=== PATIENT | female | born 1970 | race Caucasian/White ===

== ENCOUNTER 2021-06-26 12:00 | Outpatient (RCR) | payer OTHER, SELFPAY ==
--- NOTE | 2021-05-22 11:08 | HP.PTEVAL_ITS ---
Patient's Visit Information BARBARA WEI is a 51 year old F referred to Physical Therapy by Dr. Magen Storey MD with a diagnosis of R THR s/p 05-07-21. Date of Evaluation: 05/22/21 Physical Therapist: MANI Mckay - Visit Plan Frequency: 3x /Week Duration: 2 Months Plan: 3X/ week for 6-8 weeks for R hip strengthening, AROM, gait training, functional activities, stairs, curb steps, sit to stands with HEP. HEP: standing heel and toe raises at walker, - Subjective Pt had a R THR on 05-07-21. Her incison is on the front of her thigh and had an anterior approach. She is walking with a front wheeled walker with WBAT. She has been dealing with increase swelling from being on her feet too much. said to avoid pulling R LEG back under the chair in sitting due to the way he had to put in the prosthesis due to bone softening. She had a L THR done previous. She has pain in her groin when moving around. She has basement stairs at home with a railing. There are 2 steps to get into the house without a railing with up with the good and down with the bad with the walker able to be on the step. She is not driving. She is not working. 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 She is off work until 07-06-2021. She is having problems with impacted bowls and thinks that is putting pressure on the sciatic nerve. She has had some action with a suppository this morning but not as much as she should be. She is staying her kids currently. HEP: squeeze butt cheeks together, QS, ankle pumps, SLR. She feels that the bruising was extensive. Sit to stand: she uses her arms to push off the chair. She is not sleeping well because her leg twitches and pain at night. She is up and moving a lot during the day due to decreasing her swelling. She had to elevate her leg for 3 days due to the swelling - Pain R hip pain Pain Intensity (Out of 10): 4 Pain Intensity Range: 6 Comment: with walking. - Objective Gait: walks with decreased stance time on the R LE with a front wheeled walker with decreased heel to toe gait pattern and almost a straight leg. Sit to stand: uses B UE to stand up out of the chair. LE MMT: R hip flex 3.3#, R hip abd 3.6#, Knee flex 4-/5 and Knee ext R 4-/5. R hip flex AROM in standing 30 degrees. R hip ext AROM in standing 3 degrees. Pt is able to rise on heels and toes X 10... increase R groin pain after X 10 toe raises. Tug 29.78 seconds - Balance/Special Test Scores Lower Extremity Functional Score: 18 WOMAC Total Score: 57 WOMAC Percentatge: 40.6300 - Goals Goal 1:: I HEP Goal Time Frame: 6-8 Weeks Goal 2:: Increase R hip flex and abd strength by 5# each Goal Time Frame: 6-8 Weeks Goal 3:: be able to walk without an AD and without an antalgic gait Goal Time Frame: 6-8 Weeks Goal 4:: Up and down stair recip with 1 hand rail without any signs of weakness Goal Time Frame: 6-8 Weeks Goal 5:: Be able to get up out of a chair without the use of her arms X 5 Goal Time Frame: 6-8 Weeks - Rehabilitation Potential Rehabilitation Potential: Good - Anticipated Interventions Patient/Client Instruction: Educate patient on: Condition, Plan of Care For the Purpose of:: To decrease pain, To decrease swelling/inflammation, To increase ROM, To improve muscle performance and motor function, To improve ability to perform ADL's, To increase tolerance to activity/condition/position, To improve performance and independence with ADL's, To decrease level of supe rvision to perform tasks, To improve ability of physical actions for home/community/work/leisure, To improve gait and locomotor functions, To improve health of tissue, To decrease soft tissue restriction, To increase flexibility/ROM, To improve balance, To improve safety with gait Therapeutic Exercise to Include: Strength training, Endurance training, Balance training, Body mechanics, Postural training, Flexibilty training, Gait and locomotor training, Neuromotor development, Active ROM, Dynamic Lumbar Stabilization For the Purpose of:: To decrease pain, To increase ROM, To improve nutrient delivery to tissue, To increase oxygenation perfusion, To improve muscle performance and motor function, To improve ability to perform ADL's, To increase tolerance to activity/condition/position, To improve performance and independence with ADL's, To decrease level of supervision to perform tasks, To improve ability of physical actions for home/community/work/leisure, To improve gait and locomotor functions, To improve health of tissue, To decrease soft tissue restriction, To increase flexibility/ROM, To improve endurance, To improve balance, To improve safety with gait Functional Training to Include: Gait training For the Purpose of:: To improve gait and locomotor functions, To improve safety with gait Thank you for the opportunity to evaluate your patient. For Medicare and Medicare HMO plans, please review the plan of care and approve it. It will need to be FAXED BACK to us at [phone] for Medicare purposes. For Medicare only, by signing this I certify the plan of care. Please let me know if there are questions or concerns regarding this plan of car e. Physician Signature: Date:
--- NOTE | 2021-11-06 12:39 | HP.PTDCNRP_ITS ---
BARBARA WEI was seen in my office for initial evaluation on 05/22/21. The following Plan of Care was established for this patient: Initial Frequency: 3x /Week Initial Duration: 2 Months Patient/Client Instruction: Educate patient on: Condition, Plan of Care For the Purpose of:: To decrease pain, To decrease swelling/inflammation, To increase ROM, To improve muscle performance and motor function, To improve ability to perform ADL's, To increase tolerance to activity/condition/position, To improve performance and independence with ADL's, To decrease level of supervision to perform tasks, To improve ability of physical actions for home/community/work/leisure, To improve gait and locomotor functions, To improve health of tissue, To decrease soft tissue restriction, To increase flexibility/ROM, To improve balance, To improve safety with gait Therapeutic Exercise to Include: Strength training, Endurance training, Balance training, Body mechanics, Postural training, Flexibilty training, Gait and locomotor training, Neuromotor development, Active ROM, Dynamic Lumbar Stabilization For the Purpose of:: To decrease pain, To increase ROM, To improve nutrient delivery to tissue, To increase oxygenation perfusion, To improve muscle performance and motor function, To improve ability to perform ADL's, To increase tolerance to activity/condition/position, To improve performance and independence with ADL's, To decrease level of supervision to perform tasks, To improve ability of physical actions for home/community/work/leisure, To improve gait and locomotor functions, To improve health of tissue, To decrease soft tiss ue restriction, To increase flexibility/ROM, To improve endurance, To improve balance, To improve safety with gait Functional Training to Include: Gait training For the Purpose of:: To improve gait and locomotor functions, To improve safety with gait This patient was last seen in our office 06/26/21. Pertinent comments regarding their Physical therapy will appear below: DC PT as pt did not reschedule since May 2021 At this point I will be discontinuing this patient from physical therapy. I would be happy to see this patient again in the future if found appropriate by the physician. Thank you! Debbi Kan, MPT Balance/Gait/Functional tests - Balance/Special Test Scores Lower Extremity Functional Score: 29 WOMAC Total Score: 57 WOMAC Percentage: 40.6300
== END 2021-06-26 19:00 | disposition home or self-care (01) ==
LOC: PT 12:00
PROVIDERS: PCP Family Medicine; Referring Provider Orthopaedic Surgery; Visit Provider Orthopaedic Surgery
DX: M16.11 Unilateral primary osteoarthritis, right hip (principal); M25.551 Pain in right hip
CPT/HCPCS: 97110; 97161

== ENCOUNTER 2022-04-14 04:39 | Emergency (ER) | payer BC, SELFPAY ==
[2022-04-14 04:41] VITALS: BP 144/84; PULSE 73; RESP 18; TEMP 36.3; O2SAT 99; BMI 41.3
--- NOTE | 2022-04-14 04:53 | EX.ED.DYSGE1 ---
HPI History of Present Illness Chief Complaint: Overdose Detail of Chief Complaint: Concern for accidental overdose of iron Informant: patient Onset/Context/Timing Onset: Days Context: Gradual Onset Timing: Intermittent Current Severity: Mild Maximum Severity: Mild Narrative Narrative: 52-year-old female history of prior gastric bypass surgery, Marcela cystectomy and prior hip replacement. States that she craves meat and thinks that secondary to her gastric bypass so for the last 3 weeks she has been taking higher a 65 mg tablet twice a week. She also takes a daily multivitamin. Says she has noticed dark stool and thought she might of overdosed on the iron. She has had some intermittent nausea and constipation. Also states today she had mild dysuria. Denies any fever. Prior similar symptoms: No Recent Illness/Hospitalization: No PFSH PFSH Home Medications cephalexin 500 mg capsule 500 mg PO Q6 7 days #28 caps 04/14/22 [Rx Last Taken Unknown] Allergy/AdvReac Type Severity Reaction Status Date / Time No Known Allergies Allergy Verified 04/14/22 04:46 Social History Smoking Status: Never smoker ROS ROS ED ROS Narrative Dark stool. Nausea. Review of Systems ROS Unobtainable: Denies due to encephalopathy Constitutional Constitutional ED: Denies chills Eyes Eyes: Denies diplopia ENT ENT ED: Denies change in voice Cardiovascular Cardiovascular: Reports abdominal pain Respiratory/Chest Respiratory/Chest: Denies chest congestion Gastrointestinal Gastrointestinal: Reports abdominal pain Genitourinary Genitourinary ED: Denies low back pain Musculoskeletal Musculoskeletal: Denies deformity Integumentary Denies bleeding lesions or jaundice Neurologic Neurologic: Denies abnormal speech or focal weakness Psychiatric Psychiatric: Denies confusion Endocrine Endocrinology: Denies cold intolerance Hematologic/Lymphatic Hematologic/Lymphatic: Denies lymphadenopathy Allergic/Immunologic Allergic/Immunologic ED: Denies lip swelling or mouth swelling EXAM Physical Exam Narrative Exam Narrative: 52-year-old female no acute distress. Vital signs stable afebrile. H EENT exam unremarkable. Moist Riis membranes. Neck nontender no lymphadenopathy. Lungs clear to auscultation bilaterally. Heart regular rhythm rate about 70 no murmur. Abdomen soft, nontender, nondistended. Normal bowel sounds no peritoneal signs. Both right upper and right lower quadrants are unremarkable. Moving all 4 extremities. Nontender no edema. Back nontender. Neurologically she is awake and alert. Const Vital Signs: 04/14/22 04:41 Temperature 97.3 F L Temperature Source Oral Pulse Rate 73 Respiratory Rate 18 Blood Pressure 144/84 H Blood Pressure Mean 104 Pulse Ox 99 Oxygen Delivery Method Room Air Positive well nourished, well developed, obese, alert, oriented x3, no apparent distress, average body habitus, no limitations and healthy appearing; Negative for cachectic, contractures or unkempt General Appearance ED: active, cooperative, comfortable, well kempt and well developed; Negative for unkempt, cachectic, contractures, crying, cyanotic, disheveled, frail, fussy, ill appearing or irritable Orientation / Consciousness: awake, oriented to person, oriented to place and oriented to time; Negative for comatose, confused, disoriented or obtunded Exam Limitations: no limitations; Negative for altered mental status Nutritional Appearance: overweight and obese; Negative for cachectic HEENT Reports normocephalic and head/scalp atraumatic normocephalic, normal to inspection and atraumatic; Negative for trauma Face and Sinus: normal facial exam General Ear: No hearing grossly impaired External Ear: external ears normal Mouth ED: Yes oral and palatal mucosa normal Mouth: oral and palatal mucosa normal Teeth and Gingiva: Negative for abnormal tooth and associated gingiva Throat: posterior oropharynx normal Eyes PERRL, EOMs intact bilaterally, conjunctivae normal and no scleral icterus General Eye ED: Yes normal appearance of both eyes; Negative for scleral icterus Eyelid: eyelids normal Conjunctiva: conjunctiva normal Sclera: sclera normal Pupil: PERRL EOM: EOM abnormal Neck full ROM, No nuchal rigidity, no lymphadenopathy, supple, no meningeal signs and no JVD General: normal visual inspection Lymph Lymphatic: no lymphadenopathy noted and no lymphedema noted; Negative for lymphedema or lymphadenopathy Chest Wall inspection of chest normal and palpation of chest normal Resp normal respiratory effort, normal air movement, no retractions, no use of accessory muscles and clear to auscultation bilaterally Auscultation: clear to auscultation bilaterally Cardio regular rate, regular rhythm, S1 normal heart sound, S2 normal heart sound, no murmurs, no rub, no gallops, no clicks and no JVD; Negative for diaphoretic Rate: regular rate; Negative for bradycardia or tachycardic Rhythm: regular rhythm Heart Sounds: S1 normal and S2 normal; Negative for click, gallop, murmur or rub GI normal to inspection, nondistended, normoactive bowel sounds, soft to palpation, non-tender, non-distended, no masses and no bruits Auscultation: normoactive bowel sounds Palpation: soft; Negative for tender, guarding or rigid no CVA tenderness Back/Spine no CVA tenderness, normal ROM and normal to inspection General Back: Negative for CVA tenderness Extremity normal to inspection, full ROM, no joint enlargement, no clubbing, cyanosis or edema, no calf tenderness and no pedal edema Neuro oriented x3, CN's II-XII intact bilaterally, moves all extremities and no focal motor deficits Sensorium / Orientation: awake, alert, oriented to person, oriented to place and oriented to time; Negative for orientation impaired, confused or lethargic Psych mental status grossly normal, thought process normal, cooperative, affect normal, speech normal and activity/motor behavior normal Appearance: grossly normal, appropriate and well kempt; Negative for unkempt Attitude: calm, engaged, No paranoid, No withdrawn, No bizarre, No uncooperative and No evasive Activity / Motor Behavior: appropriate eye contact Speech: normal speech Mood & Affect: euthymic mood; Negative for irritable Thought Process: normal thought process Memory / Cognition: memory grossly intact Insight: insight good Skin no rashes or lesions noted, no wounds, no jaundice, no petechiae and no mottling General Skin Exam: no breakdown Lesions: no lesions Rashes: no rashes Trauma: no lacerations or abrasions MDM MDM MDM Narrative Medical decision making narrative: Healthy-appearing 52-year-old female complaining of possible unintentional iron overdose. Exam benign. Screening labs being obtained. Repeat exam unchanged. Urine culture will be sent. Patient was started on antibiotics, keflex, for urinary tract infection and outpatient follow-up. Lab Data Attestation: I reviewed the patient's lab results. Lab results narrative: CBC normal white count of 7.2. H&H 13.8 and 41. Electrolytes normal gap 6 normal BUN and creatinine. Normal liver enzymes. Urinalysis are positive for nitrates, 50 daughter white cells and 3+ bacteria consistent with a urinary tract infection a urine culture will be sent. Labs: Laboratory Results - last 24 hr 04/14/22 04/14/22 04/14/22 04:45 04:45 05:00 WBC 7.2 RBC 4.38 Hgb 13.6 Hct 41.4 MCV 94.5 MCH 31.1 MCHC 32.9 RDW Std Deviation 42.8 RDW Coeff of [place] 12.3 Plt Count 248 MPV 10.6 Immature Gran % (Auto) 0.300 Neut % (Auto) 47.7 Lymph % (Auto) 41.3 H [place] % (Auto) 6.7 Eos % (Auto) 3.2 Baso % (Auto) 0.8 Absolute Neuts (auto) 3.4 Absolute Lymphs (auto) 2.96 Nucleated RBC % 0 Sodium 142 Potassium 3.6 Chloride 110 H Carbon Dioxide 26.0 Anion Gap 6 BUN 13 Creatinine 0.70 Estim Creat Clear Calc 93.76 Est GFR (MDRD) Af Amer 112 Est GFR (MDRD) Non-Af 92 BUN/Creatinine Ratio 18.4 Glucose 88 Calcium 8.9 Total Bilirubin 0.40 AST 19 ALT 34 Alkaline Phosphatase 100 Total Protein 7.1 Albumin 3.5 Globulin 3.6 Albumin/Globulin Ratio 1.0 Urine Color Yellow Urine Clarity Sl. Cloudy Urine pH 6.0 Ur Specific [place] 1.020 Urine Protein 30 H Urine Glucose (UA) Normal Urine Ketones Negative Urine Occult Blood 10 H Urine Nitrite Positive H Urine Bilirubin Negative Urine Urobilinogen Normal Ur Leukocyte Esterase 500 H Urine RBC 0-5 SEEN Urine WBC 50-100 SEEN Ur Squamous Epith Cells 0-5 SEEN Urine Bacteria 3+ Urine Mucus 0 SEEN Discharge Plan Triage Chief Complaint: Overdose ED Provider: Guilherme Heard Dx/Rx/DC Orders Clinical Impression: UTI (urinary tract infection), History of gastric bypass Instructions: ED Cystitis Female Adult Prescriptions: New cephalexin 500 mg capsule 500 mg PO Q6 7 Days Qty: 28 0RF Primary Care Provider: David Naranjo Referrals: David Naranjo MD [Primary Care Provider] - 1 Week if not improving Activity Restrictions/Additional Instructions: Plenty of cranberry juice and water to help with your urinary tract infection. A urine culture was sent. The antibiotic Keflex 1 pill 4 times a day for 7 days. Your prescription was sent to [facility] [place]. Disposition Disposition: Home, Self Care
[2022-04-14 05:00] LABS: Absolute Lymphocyte Count 2.96 X10^3/uL (0.83-4.51); Absolute Neutrophil Count 3.4 X10^3/uL (2.0-7.7); Basophil# 0.06 X10^3/uL; Basophil% 0.8 % (0-1); Eosinophil# 0.23 X10^3/uL; Eosinophils% 3.2 % (0-5); Hematocrit 41.4 % (37-47); Hemoglobin 13.6 g/dL (12.0-15.0); Lymphocyte # 2.96 X10^3/ul (0.83-4.51); Lymphocyte % 41.3 % (19-41); Mean Corp Hgb Conc 32.9 g/dL (32-36); Mean Corpuscular Hgb 31.1 pg (27.0-32.0); Mean Corpuscular Volume 94.5 fL (81-99); Mean Platelet Vol. 10.6 fl (6.2-12.0); Monocyte# 0.48 X10^3/uL; Monocyte% 6.7 % (0-10); NRBC Flagged by Analyzer 0 % (0-5); Neutrophil # 3.41 X10^3/uL (2.7-7.7); Neutrophil % 47.7 % (47-70); Platelet Count 248 K/mm3 (150-450); RBC Distribution Width CV 12.3 % (11.6-14.6); RBC Distribution Width SD 42.8 fl (35.1-43.9); Red Blood Count 4.38 M/mm3 (4.2-5.4); White Blood Count 7.2 K/mm3 (4.4-11.0)
[2022-04-14 05:05] LABS: Color, Urine Yellow (Yellow); Glucose, Dipstick Normal (Normal); Ketone-Dipstick Negative (Negative); Leukocyte Esterase-Dipstick 500 /ul (Negative); Mucous, Urine 0 SEEN /hpf (<or=2+); Nitrite-Dipstick Positive (Negative); Occult Blood-Urine 10 /ul (Negative); Protein-Dipstick 30 mg/dl (Negative); Urine Bilirubin Dipstick Negative (Negative); Urine Clarity Sl. Cloudy (Clear); Urine Urobilinogen Normal (Normal)
[2022-04-14 05:12] LABS: Bacteria 3+ /hpf (None Seen); Red Blood Cells-Urine 0-5 SEEN /hpf (0-5); Squamous Epithelial Cells - UA 0-5 SEEN /hpf (5-10); White Blood Cells 50-100 SEEN /hpf (0-5)
[2022-04-14 05:20] LABS: AST(SGOT) 19 U/L (15-37); Alanine Aminotransfer ALT/SGPT 34 U/L (13-56); Albumin, Serum 3.5 g/dL (3.2-5.0); Alkaline Phosphatase 100 U/L (45-117); Anion Gap 6 (5-15); BUN 13 mg/dL (7-18); BUN/Creat Ratio 18.4 RATIO (10-20); Calcium,Total 8.9 mg/dL (8.5-10.1); Chloride 110 mmol/L (98-107); EST Glomerular Filtration Rate 92 mL/min (>60); Est Glom Filt Rate - Afr Amer 112 mL/min (>60); Estimated Creatinine Clearance 93.76 ml/min; Globulin 3.6 g/dL (2.2-4.2); Glucose 88 mg/dL (74-106); Potassium 3.6 mmol/L (3.5-5.1); Protein, Total 7.1 g/dL (6.4-8.2); Sodium Level 142 mmol/L (136-145)
[2022-04-14] MEDS: Cephalexin 250 MG Capsule 500 MG PO (05:32)
[2022-04-14 05:33] VITALS: BP 132/81; PULSE 62; RESP 16; O2SAT 98
== END 2022-04-14 05:37 | disposition home or self-care (01) ==
PROVIDERS: Emergency Provider Emergency Medicine; PCP Family Medicine; Visit Provider Emergency Medicine
DX: N39.0 Urinary tract infection, site not specified (principal); Z68.41 Body mass index [BMI] 40.0-44.9, adult; Z98.84 Bariatric surgery status; E66.9 Obesity, unspecified
CPT/HCPCS: 80053; 81001; 85025; 87086; 87088; 87186; 99284; A4216

== ENCOUNTER → 2022-06-07 | Outpatient (CLI) | payer BC, SELFPAY ==
--- NOTE | 2022-06-07 09:43 | NM_ITS ---
CLINICAL: 52-year-old female with history of painful right hip arthroplasty operated most recently in 2020. WHOLE BODY 99m Tc MDP RADIONUCLIDE BONE SCINTIGRAPHY COMPARISON: None available FINDINGS: Following the intravenous administration of 21.2 mCi of 99m Tc MDP, whole body bone images reveal: 1. Increased tracer tracer is identified in the acetabular and intertrochanteric aspect of the painful right hip arthroplasty. 2. Facilitated uptake is noted in the acromioclavicular compartments of both shoulders, the knee articulations bilaterally. 3. The remaining skeletal structures are scintigraphically unremarkable with normal-appearing renal images and urinary bladder activity identified. An increase in uptake is noted in the femoral component of the presumed asymptomatic left hip prosthesis most consistent with normal postsurgical change. Enhanced radiopharmaceutical is noted in the left superior orbit most consistent with a normal variant involving the frontal zygomatic suture consistent with a normal variant. (Vasyl et al, World Journal of Nuclear Medicine 10: 139, 2011). NM/Bone Scan Whole Body IMPRESSION: 1. The increase in radiotracer concentration identified in the acetabular component of the painful right hip arthroplasty may represent loosening. The specificity of this finding is decreased in the setting of operative intervention < 2 years prior to the current presentation. If infection is a diagnostic consideration, correlation with labeled leukocyte imaging is recommended. 2. 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 Electronically Signed: Vahe Gill, at 10:00 EST ,
== END | disposition home or self-care (01) ==
LOC: NM 09:41
PROVIDERS: PCP Family Medicine; Referring Provider Orthopaedic Surgery; Visit Provider Orthopaedic Surgery
DX: M19.011 Primary osteoarthritis, right shoulder (principal); Z96.641 Presence of right artificial hip joint; M19.012 Primary osteoarthritis, left shoulder; M25.551 Pain in right hip
CPT/HCPCS: 78306; A9503

== ENCOUNTER 2022-12-03 14:26 | Observation (INO) | payer BC, SELFPAY ==
[2022-12-03] VITALS (8 sets, daily range): BP systolic 107–151; BP diastolic 63–87; PULSE 74–95; RESP 16–18; TEMP 36.5–37.9; O2SAT 92–100; BMI 40.6; BMI 41.1
--- NOTE | 2022-12-03 14:49 | CT_ITS ---
STUDY: CT ABDOMEN AND PELVIS WITH CONTRAST REASON FOR EXAM: Female, 52 years old. rlq abdominal pain RADIATION DOSAGE (If Supplied By Facility): CTDIvol = ( 15.38 ) mGy, DLP = ( 1364.46 ) mGycm TECHNIQUE: Transaxial images were obtained from the dome of the diaphragm to the symphysis pubis without oral contrast. IV 100mL Isovue-300 was administered. Sagittal and coronal images were reconstructed. Individualized dose optimization techniques were used for this CT. COMPARISON: None. FINDINGS: The visualized lung bases are unremarkable. The visualized portions of the heart are within normal limits. Probable 5 mm cyst in the liver. Status post cholecystectomy. Mild dilatation of the biliary system. Normal spleen. Normal pancreas. Normal bilateral adrenal glands. Normal right kidney. Normal left kidney. Prior surgery of the stomach. Normal small intestine. Normal colon. The appendix is borderline in size. Mild adjacent mesenteric stranding. Appendicitis cannot be excluded. Normal abdominal aorta. Normal inferior vena cava. Normal retroperitoneum. Normal urinary bladder. Normal abdominal wall. Hip prosthesis bilaterally causing artifact limiting the lower pelvic images. CT/Abdomen/Pelvis W IV Cont ONLY IMPRESSION: The appendix is borderline in size. Mild adjacent mesenteric stranding. Appendicitis cannot be excluded. Small hepatic cyst. Electronically Signed: Fermin Ellis DO at 16:25 EDT Reading Location ID and State: [facility] / [place] Tel [phone], Service support ,
--- NOTE | 2022-12-03 14:50 | ED.VIS.GI ---
HPI HPI - GI History of Present Illness Chief Complaint: Abd Pain Narrative Narrative: 52-year-old female presenting with right lower quadrant abdominal pain. She states that on Friday she started having diarrhea. He then developed nausea and vomiting. Yesterday she continued to have some nausea and vomiting, and today she has developed right lower quadrant abdominal pain. She is not checked her temperature. Patient has significant surgical history of Dale-en-Y, cholecystectomy which was done in [place]. She had an upper and endoscopy performed a couple of years ago but that was also in [place]. She is not established with here. Denies black or bloody stools or emesis. [facility] Medical History (Updated 12/03/22 @ 14:35 by Dao Kumar) Osteoarthritis Home Medications atorvastatin 10 mg tablet 10 mg PO DAILY 12/03/22 [History Last Taken Unknown] duloxetine 30 mg capsule,delayed release 30 mg PO QHS 12/03/22 [History Last Taken Unknown] Allergy/AdvReac Type Severity Reaction Status Date / Time No Known Allergies Allergy Verified 12/03/22 14:28 Surgical History (Updated 12/03/22 @ 14:35 by Dao Kumar) History of back surgery Hx of bilateral hip replacements Hx of cholecystectomy Hx of gastric bypass Social History Smoking Status: Never smoker ROS ROS ED Constitutional Constitutional ED: Denies chills, fever(s) or sweats Eyes Eyes: Denies blurry vision or change in vision ENT ENT ED: Denies ear pain or sore throat Cardiovascular Cardiovascular: Denies chest pain, palpitations or racing heartbeat Respiratory/Chest Respiratory/Chest: Denies cough, dyspnea or sputum Gastrointestinal Gastrointestinal: Reports abdominal pain, diarrhea, nausea and vomiting; Denies constipation Genitourinary Genitourinary ED: Denies dysuria, hematuria or urinary frequency Musculoskeletal Musculoskeletal: Denies arthralgias, myalgias or neck pain Integumentary Denies abscess, Abrasions or rash Neurologic Neurologic: Denies headache(s), paresthesias or weakness Psychiatric Psychiatric: Denies anxiety, depression, suicidal ideation or suicidal thoughts Endocrine Endocrinology: Denies polydipsia or polyuria EXAM Physical Exam Const Vital Signs: 12/03/22 14:27 12/03/22 16:59 12/03/22 17:23 Temperature 97.9 F 97.7 F L Temperature Source Temporal Temporal Pulse Rate 91 84 81 Respiratory Rate 18 18 18 Blood Pressure 147/87 H 151/73 H 151/73 H Blood Pressure Mean 107 99 99 Pulse Ox 98 100 97 Oxygen Delivery Method Room Air Room Air Room Air Positive well nourished General Appearance ED: NAD; Negative for pallor HEENT Reports moist mucous membranes normocephalic and atraumatic Eyes PERRL and EOMs intact bilaterally Resp normal respiratory effort Cardio regular rate and regular rhythm GI Palpation: tender RLQ Psych mental status grossly normal Skin no wounds General Skin Exam: Negative for jaundice or pallor MDM MDM MDM Narrative Medical decision making narrative: Patient presenting with right lower quadrant pain as well as nausea, vomiting, diarrhea. Differential includes colitis, diverticulitis, appendicitis, viral syndrome. Patient medicated with morphine 4 mg and Zofran 4 mg IV. She is given a liter normal saline. Patient's pain was well controlled. CBC shows no leukocytosis. Hemoglobin hematocrit are stable. Platelets are normal. Renal function electrolytes within normal limits. Liver function normal. Urinalysis negative for infection. CT of the abdomen pelvis with IV contrast was obtained and shows concern for acute appendicitis. I reviewed the CT with Dr. Jessica and she is going to take the patient to the OR for appendectomy. Patient was given a dose of Zosyn IV here in the ED. She is transported in stable condition. Impression: 1. Nausea/vomiting 2. Diarrhea 3. Acute appendicitis Lab Data Labs: Laboratory Results - last 24 hr 12/03/22 12/03/22 12/03/22 14:40 14:40 15:48 WBC 7.2 RBC 4.87 Hgb 15.0 Hct 46.1 MCV 94.7 MCH 30.8 MCHC 32.5 RDW Std Deviation 43.3 RDW Coeff of Salas 12.4 Plt Count 224 MPV 10.4 Immature Gran % (Auto) 0.400 Neut % (Auto) 84.2 H Lymph % (Auto) 8.9 L [place] % (Auto) 5.7 Eos % (Auto) 0.7 Baso % (Auto) 0.1 Absolute Neuts (auto) 6.1 Absolute Lymphs (auto) 0.64 L Nucleated RBC % 0 Sodium 140 Potassium 4.0 Chloride 106 Carbon Dioxide 27.0 Anion Gap 7 BUN 20 H Creatinine 0.78 Estim Creat Clear Calc 84.14 Est GFR (MDRD) Af Amer 99 Est GFR (MDRD) Non-Af 82 BUN/Creatinine Ratio 25.6 H Glucose 89 Calcium 9.2 Total Bilirubin 0.60 AST 25 ALT 31 Alkaline Phosphatase 96 Total Protein 7.4 Albumin 3.7 Globulin 3.7 Albumin/Globulin Ratio 1.0 Lipase 30 Urine Color Yellow Urine Clarity Clear Urine pH 8.0 Ur Specific [place] 1.010 Urine Protein Negative Urine Glucose (UA) Normal Urine Ketones 15 H Urine Occult Blood Negative Urine Nitrite Negative Urine Bilirubin Negative Urine Urobilinogen 1 H Ur Leukocyte Esterase Negative Urine RBC 0 SEEN Urine WBC 0 SEEN Ur Squamous Epith Cells 0 SEEN Urine Bacteria 0 SEEN Urine Mucus 0 SEEN Radiography Diagnostic Testing: Clinical Impression(s) from Imaging Studies Abdomen/Pelvis CT 12/03/22 14:49 IMPRESSION: The appendix is borderline in size. Mild adjacent mesenteric stranding. Appendicitis cannot be excluded. Small hepatic cyst. Electronically Signed: Fermin Ellis DO at 16:25 EDT Reading Location ID and State: [facility] / [place] Tel [phone], Service support , Discharge Plan Disposition Disposition: Acute Care Hospital [facility] Discharge Date/Time: 12/03/22 17:24
[2022-12-03] MEDS: 0.9% Normal Saline 1,000 ML 1000 ML IV (14:59)
[2022-12-03] MEDS: Morphine 4 MG/ML Syringe IV (14:59)
[2022-12-03] MEDS: Ondansetron 4 MG/2 ML Vial IV ×2 (14:59→20:39)
[2022-12-03 15:01] LABS: Absolute Lymphocyte Count 0.64 X10^3/uL (0.83-4.51); Absolute Neutrophil Count 6.1 X10^3/uL (2.0-7.7); Basophil# 0.01 X10^3/uL; Basophil% 0.1 % (0-1); Eosinophil# 0.05 X10^3/uL; Eosinophils% 0.7 % (0-5); Hematocrit 46.1 % (37-47); Lymphocyte # 0.64 X10^3/ul (0.83-4.51); Lymphocyte % 8.9 % (19-41); Mean Corp Hgb Conc 32.5 g/dL (32-36); Mean Corpuscular Hgb 30.8 pg (27.0-32.0); Mean Corpuscular Volume 94.7 fL (81-99); Mean Platelet Vol. 10.4 fl (6.2-12.0); Monocyte# 0.41 X10^3/uL; Monocyte% 5.7 % (0-10); NRBC Flagged by Analyzer 0 % (0-5); Neutrophil # 6.06 X10^3/uL (2.7-7.7); Neutrophil % 84.2 % (47-70); Platelet Count 224 K/mm3 (150-450); RBC Distribution Width CV 12.4 % (11.6-14.6); RBC Distribution Width SD 43.3 fl (35.1-43.9); Red Blood Count 4.87 M/mm3 (4.2-5.4); White Blood Count 7.2 K/mm3 (4.4-11.0)
[2022-12-03 15:20] LABS: AST(SGOT) 25 U/L (15-37); Alanine Aminotransfer ALT/SGPT 31 U/L (13-56); Albumin, Serum 3.7 g/dL (3.2-5.0); Alkaline Phosphatase 96 U/L (45-117); Anion Gap 7 (5-15); BUN 20 mg/dL (7-18); BUN/Creat Ratio 25.6 RATIO (10-20); Calcium,Total 9.2 mg/dL (8.5-10.1); Chloride 106 mmol/L (98-107); Creatinine, Serum 0.78 mg/dL (0.55-1.02); EST Glomerular Filtration Rate 82 mL/min (>60); Est Glom Filt Rate - Afr Amer 99 mL/min (>60); Estimated Creatinine Clearance 84.14 ml/min; Globulin 3.7 g/dL (2.2-4.2); Glucose 89 mg/dL (74-106); Lipase 30 U/L (13-75); Protein, Total 7.4 g/dL (6.4-8.2); Sodium Level 140 mmol/L (136-145)
[2022-12-03 15:52] LABS: Bacteria 0 SEEN /hpf (None Seen); Mucous, Urine 0 SEEN /hpf (<or=2+); Red Blood Cells-Urine 0 SEEN /hpf (0-5); Squamous Epithelial Cells - UA 0 SEEN /hpf (5-10); White Blood Cells 0 SEEN /hpf (0-5)
[2022-12-03 16:00] LABS: Color, Urine Yellow (Yellow); Glucose, Dipstick Normal (Normal); Ketone-Dipstick 15 mg/dl (Negative); Leukocyte Esterase-Dipstick Negative /ul (Negative); Nitrite-Dipstick Negative (Negative); Occult Blood-Urine Negative /ul (Negative); Protein-Dipstick Negative (Negative); Urine Bilirubin Dipstick Negative (Negative); Urine Clarity Clear (Clear); Urine Urobilinogen 1 mg/dl (Normal)
--- NOTE | 2022-12-03 17:12 | PCM.HP.STD ---
HPI - General General Date of Admission: 12/03/22 HPI Narrative BARBARA WEI, is a 52 F who presents to the ER due to right lower quadrant pain. Patient states she started having diarrhea on Friday however last night started having periumbilical right-sided abdominal pain which moved to the right lower quadrant. Patient was also having nausea and vomiting starting about [address] abdomen pelvis showed some inflammation near the appendix called borderline appendix and stated that appendicitis should be ruled out. Patient does have a slight left shift but normal white blood cell count. Patient was given Zosyn IV in the ER for acute appendicitis. [facility] Medical History (Updated 12/03/22 @ 17:[address] Lisa Jessica MD) Hyperlipemia Osteoarthritis Home Medications atorvastatin 10 mg tablet 10 mg PO DAILY 12/03/22 [History Last Taken Unknown] duloxetine 30 mg capsule,delayed release 30 mg PO QHS 12/03/22 [History Last Taken Unknown] Allergy/AdvReac Type Severity Reaction Status Date / Time No Known Allergies Allergy Verified 12/03/22 14:28 Surgical History (Updated 12/03/22 @ 17:[address] Lisa Jessica MD) History of back surgery Hx of bilateral hip replacements Hx of cholecystectomy Hx of gastric bypass S/P abdominoplasty Social History Smoking Status: Never smoker Vital Signs Vital Signs Vital Signs: 12/03/22 14:27 12/03/22 16:59 Temperature 97.9 F Temperature Source Temporal Pulse Rate 91 84 Respiratory Rate 18 18 Blood Pressure 147/87 H 151/73 H Blood Pressure Mean 107 99 Pulse Ox 98 100 Oxygen Delivery Method Room Air Room Air Weight Weight: 271 lb 6.224 oz Body Mass Index (BMI) 40.6 Physical Exam Const alert, oriented x3 and no apparent distress HEENT normocephalic and head/scalp atraumatic Resp normal respiratory effort Cardio regular rate GI soft to palpation; Negative for non-distended GI Narrative: Well-healed abdominoplasty incision as well as some various laparoscopic incisions likely due to her gastric bypass Palpation: tender RLQ and Rovsing's sign and guarding other (Right lower quadrant voluntary) Extremity no clubbing, cyanosis or edema Neuro CN's II-XII intact bilaterally Psych mental status grossly normal Results Lab / Micro Data Result Diagrams: 12/03/22 14:40 12/03/22 14:40 Labs: Laboratory Results - last 24 hr 12/03/22 14:40: WBC 7.2, RBC 4.87, Hgb 15.0, Hct 46.1, MCV 94.7, MCH 30.8, MCHC 32.5, RDW Std Deviation 43.3, RDW Coeff of Salas 12.4, Plt Count 224, MPV 10.4, Immature Gran % (Auto) 0.400, Neut % (Auto) 84.2 H, Lymph % (Auto) 8.9 L, Edgar % (Auto) 5.7, Eos % (Auto) 0.7, Baso % (Auto) 0.1, Absolute Neuts (auto) 6.1, Absolute Lymphs (auto) 0.64 L, Nucleated RBC % 0 12/03/22 14:40: Sodium 140, Potassium 4.0, Chloride 106, Carbon Dioxide 27.0, Anion Gap 7, BUN 20 H, Creatinine 0.78, Estim Creat Clear Calc 84.14, Est GFR (MDRD) Af Amer 99, Est GFR (MDRD) Non-Af 82, BUN/Creatinine Ratio 25.6 H, Glucose 89, Calcium 9.2, Total Bilirubin 0.60, AST 25, ALT 31, Alkaline Phosphatase 96, Total Protein 7.4, Albumin 3.7, Globulin 3.7, Albumin/Globulin Ratio 1.0, Lipase 30 12/03/22 15:48: Urine Color Yellow, Urine Clarity Clear, Urine pH 8.0, Ur Specific [place] 1.010, Urine Protein Negative, Urine Glucose (UA) Normal, Urine Ketones 15 H, Urine Occult Blood Negative, Urine Nitrite Negative, Urine Bilirubin Negative, Urine Urobilinogen 1 H, Ur Leukocyte Esterase Negative, Urine RBC 0 SEEN, Urine WBC 0 SEEN, Ur Squamous Epith Cells 0 SEEN, Urine Bacteria 0 SEEN, Urine Mucus 0 SEEN Radiology Impression Abdomen/Pelvis CT 12/03/22 14:49 IMPRESSION: The appendix is borderline in size. Mild adjacent mesenteric stranding. Appendicitis cannot be excluded. Small hepatic cyst. Electronically Signed: Fermin Ellis DO at 16:25 EDT Reading Location ID and State: [facility] / [place] Tel [phone], Service support , Assessment & Plan Assessment/Plan (1) Acute appendicitis: PLAN: Plan 1. Discussed procedure laparoscopic appendectomy, possible open along with the risk but not limited to bleeding, infection/abscess, injury to another organ (small bowel, colon, etc.), adhesion, hernia at incision sites, and anesthesia. Patient no further question this time. Lisa Jessica M.D. Pager: [phone] [facility] [address] [place] [address], [address] [place] [address] Office: [phone]
[2022-12-03] MEDS: Lactated Ringers 1,000 ML 15 ML IV (17:41)
--- NOTE | 2022-12-03 18:05 | APP_PTH ---
PATIENT: BARBARA WEI LOC: MS3 U#:[id number] AGE/SX: 52/F ROOM: VT319 RE12/03/[address]: Dr. Lisa Jessica MD : 1970 BED: 1 DIS: 12/04/2022 SPEC #: [id number] RECD: 12/04/22 11:37 STATUS: MARILYN RETanika #: [id number] MELONIE: 12/03/22 18:[address]: Lisa Jessica DEPT: SURGICAL PATHOLOGY RECD BY: Arielle Duffy ENTERED: 12/04/22 13:06 SP TYPE: APPENDIX OTHR DR: Dr. David Naranjo MD Tissues: Appendix, NOS Procedures: Surgery Specimen Level III HEADER OPERATION: Laparoscopic appendectomy PRE-OP DIAGNOSIS: Acute appendicitis TISSUE SUBMITTED: Appendix MICROSCOPIC DIAGNOSIS Appendix, appendectomy: Fibrofatty obliteration of lumen. No evidence of appendicitis. AM:ruthy 12/05/2022 MICROSCOPIC DESCRIPTION Slides are reviewed. GROSS DESCRIPTION Received in fixative is one container labeled with the patient's name and designated appendix. The specimen consists of an appendix measuring 6.0 cm in length and 0.3 cm in diameter. The attached periappendiceal adipose tissue measures up to 2.5 cm in width. The serosa is congested. No obvious perforation is identified. Sections of the appendix reveal pin-point lumen with a small amount of fecal material in the proximal portion of the appendix. No fecalith is identified. The entire specimen is submitted in two cassettes. / SJ:ruthy 12/04/2022 TC:5 [facility]: [id number]
[2022-12-03] MEDS: Bupivacaine Mpf 0.5% 30 ML VIAL (18:59)
--- NOTE | 2022-12-03 19:25 | PCM.OPRPT ---
Report of Operation Date of Procedure: 12/03/22 Pre-Operative Diagnosis: Acute appendicitis Post-Operative Diagnosis: Right lower quadrant pain, normal-appearing appendix Surgery/Procedure Performed:: Laparoscopic appendectomy Description of Surgical Findings:: Normal-appearing appendix Surgeon: Lisa Jessica Type of Anesthesia: General/Supplemental Anesthesiologist: Maia Díaz Special Medications: Zosyn 3.375 g IV x1 Specimen's removed: Appendix Estimated Blood Loss (mL): < 10 cc Description of Procedure: Indications: 52-year-old female presented to the ER with new right lower quadrant pain last night. On workup she was found to have possible appendicitis with borderline appendix and mild periappendiceal stranding on CT and a leukocytosis of within normal limits with a left shift. Patient was started on antibiotics in the ER for acute appendicitis-Zosyn 3.375 g IV x1 Description of the procedure: The patient was placed on operating table in supine position. General anesthesia was induced. A timeout was completed verifying correct patient, procedure, position and special equipment prior to beginning procedure. Abdomen was prepped and draped in usual sterile fashion. Incision was made in the natural skin line above the umbilicus with a 15 blade scalpel. The fascia was elevated and incised. Entry into the peritoneum was confirmed visually and no bowel was noted in the vicinity of the incision. The Ledesma trocar was placed under direct vision. Abdomen insufflated with a pressure of 12-15 mmHg. Patient tolerated insertion well. The scope was inserted and the abdomen inspected. No injuries from initial trocar placement were noted. Minimal amount of fluid was seen in the right lower quadrant. An direct visualization 2 -5 mm trocars were placed one above the symphysis pubis and below the hairline and one in the left lower quadrant lateral to the rectus muscle. Care is taken to avoid injury to the bladder and inferior epigastric vessels. The table was placed in Trendelenburg position with the right side elevated. The appendix was grasped with atraumatic grasper and elevated. It was noted to be [id number] discuss with patient prior to procedure would plan to remove even it did appear normal. A window was developed in the mesoappendix at the point between the base of the appendix and the cecum. No obvious other source of inflammation was seen laparoscopically. An [place] 45 mm linear cutting stapler blue load was then used to divide and staple the base of the appendix. Enseal was used to divide the mesoappendix. The appendix was withdrawn into the Ledesma trocar after being placed endoscopically retrieval bag. Appendix was sent to pathology. The appendiceal stump was then irrigated and hemostasis was assured. Fluid was suctioned no other pathology was identified. Secondary trochars were removed under direct visualization. No bleeding was noted trocar sites. The laparoscope withdrawn and the umbilical trocar removed. The abdomen was allowed to collapse. Local anesthesia of 18 mL of 0.5% Marcaine was used at the incision sites. The umbilical trocar site was closed with the [id number] 0 Vicryl suture. The skin was closed using sutures of 4-0 Monocryl and Steri-Strips. The patient was extubated. The patient tolerated the procedure well and was taken to the postanesthesia care unit in satisfactory condition. Complications none
[2022-12-03] MEDS: HYDROCODONE/APAP 7.5-325/15ML 15 ML UDC PO (20:39)
[2022-12-03] MEDS: 0.9% Normal Saline 1,000 ML 120 ML IV (20:40)
[2022-12-04 00:09] VITALS: BP 99/48; PULSE 73; RESP 18; TEMP 36.7; O2SAT 93
[2022-12-04] MEDS: HYDROCODONE/APAP 7.5-325/15ML 15 ML UDC PO (02:15)
[2022-12-04 04:40] VITALS: BP 98/51; PULSE 81; RESP 18; TEMP 36.7; O2SAT 94
[2022-12-04] MEDS: 0.9% Normal Saline 1,000 ML 120 ML IV (04:44)
--- NOTE | 2022-12-04 07:49 | PCM.PN.SRG ---
Subjective Subjective Patient still notes some right lower quadrant pain seems to be just the right of her suprapubic incision before surgery is more lateral in the left lower quadrant. Objective Data Objective Data Vital Signs: Vital Signs Temp Pulse Resp BP Pulse Ox O2 Del Method O2 Flow Rate 98.1 F 81 18 98/51 L 94 Room Air 3 12/04/22 04:40 12/04/22 04:40 12/04/22 04:40 12/04/22 04:40 12/04/22 04:40 12/04/22 04:40 12/03/22 20:24 Oxygen Flow Rate (L/min) 3 Oxygen Delivery Method Room Air Weight: 278 lb 14.156 oz Body Mass Index (BMI) 41.1 Intake & Output: Intake and Output for Last 24 Hours 12/02/22 12/03/22 12/04/22 23:59 23:59 23:59 Intake Total 1050 / 1050 1668 / 1668 Output Total 900 / 900 Balance 1050 / 1050 768 / 768 Lab / Micro Data Result Diagrams: 12/03/22 14:40 12/03/22 14:40 Labs: Laboratory Results - last 24 hr 12/03/22 14:40: WBC 7.2, RBC 4.87, Hgb 15.0, Hct 46.1, MCV 94.7, MCH 30.8, MCHC 32.5, RDW Std Deviation 43.3, RDW Coeff of Salas 12.4, Plt Count 224, MPV 10.4, Immature Gran % (Auto) 0.400, Neut % (Auto) 84.2 H, Lymph % (Auto) 8.9 L, [place] % (Auto) 5.7, Eos % (Auto) 0.7, Baso % (Auto) 0.1, Absolute Neuts (auto) 6.1, Absolute Lymphs (auto) 0.64 L, Nucleated RBC % 0 12/03/22 14:40: Sodium 140, Potassium 4.0, Chloride 106, Carbon Dioxide 27.0, Anion Gap 7, BUN 20 H, Creatinine 0.78, Estim Creat Clear Calc 84.14, Est GFR (MDRD) Af Amer 99, Est GFR (MDRD) Non-Af 82, BUN/Creatinine Ratio 25.6 H, Glucose 89, Calcium 9.2, Total Bilirubin 0.60, AST 25, ALT 31, Alkaline Phosphatase 96, Total Protein 7.4, Albumin 3.7, Globulin 3.7, Albumin/Globulin Ratio 1.0, Lipase 30 12/03/22 15:48: Urine Color Yellow, Urine Clarity Clear, Urine pH 8.0, Ur Specific [place] 1.010, Urine Protein Negative, Urine Glucose (UA) Normal, Urine Ketones 15 H, Urine Occult Blood Negative, Urine Nitrite Negative, Urine Bilirubin Negative, Urine Urobilinogen 1 H, Ur Leukocyte Esterase Negative, Urine RBC 0 SEEN, Urine WBC 0 SEEN, Ur Squamous Epith Cells 0 SEEN, Urine Bacteria 0 SEEN, Urine Mucus 0 SEEN Radiography Diagnostic Testing: Radiology Impression Abdomen/Pelvis CT 12/03/22 14:49 IMPRESSION: The appendix is borderline in size. Mild adjacent mesenteric stranding. Appendicitis cannot be excluded. Small hepatic cyst. Electronically Signed: Fermin Ellis DO at 16:25 EDT Reading Location ID and State: [address] [place] [address] Tel [phone], Service support , Physical Exam Const oriented x3 and no apparent distress Resp normal respiratory effort Cardio regular rate GI soft to palpation GI Narrative: Mild tender to palpation just to the right of the suprapubic incision, incisions dressed clean dry and intact. Assessment & Plan Assessment/Plan (1) S/P laparoscopic appendectomy: (2) RLQ abdominal pain: PLAN: Plan Did discuss with the patient that her appendix did appear normal and laparoscopy?however as intact by her prior surgery did remove her appendix. Patient's right lower quadrant pain seems to be closer to the midline now than previous. If patient is able to tolerate diet we will plan to DC home. Lisa Jessica M.D. Pager: [phone] [facility] [address] [place] [address], [facility], [address] [place] [address] Office: [phone]
--- NOTE | 2022-12-04 07:51 | DCINST_ITS ---
Discharge Instructions Diet Discharge Diet: Light diet - advance as tolerated Activity Discharge Activity: May Not Drive (while taking narcotic pain medications.) May shower in (days): 1 Lifting Restrictions: no lifting >20 lbs x 2 wks, no strenuous exercise for 4 wks Dressing / Incision Call your doctor if your incision/area has: Continuous Slow Oozing, Sudden Increased Bleeding, Increased Pain/ Swelling, Increased Redness, Foul Smelling Discharge and Swelling at the incision site Call your doctor if you observe: Fever of 101 or Higher Remove Dressing in: 2 days Cleanse incision/area with: Soap & Water Additional Dressing/Incision Instructions:: Steri-Strips will fall off in 7 to 10 days, if they do not fall off okay to remove after 10 days. Follow Up Care Please Follow Up With: Lisa Jessica MD When: Call the office for a follow-up appointment 2 weeks; after 5 PM and on the weekends call [phone] with any concerns. Test Results: Test results from this visit will be discussed in further detail at your follow- up appointment, if applicable. Discharge Plan Admission Admit Date/Time: 12/03/22 17:56 Attending Provider: Lisa Jessica Primary Care Provider: David Naranjo Discharge Orders/Prescriptions Prescriptions: Continued atorvastatin 10 mg tablet 10 mg PO DAILY duloxetine 30 mg capsule,delayed release(DR/EC) 30 mg PO QHS Referrals / Follow Up: David Naranjo MD [Primary Care Provider] - Disposition Disposition (needs filled in before D/C Order can be placed): Home, Self Care
[2022-12-04 08:49] VITALS: BP 106/55; PULSE 78; RESP 15; TEMP 36.8; O2SAT 98
== END 2022-12-04 09:01 | disposition home or self-care (01) ==
LOC: ED 14:59 → SDC 17:15 → ACINP 17:16 → SDC 20:01 → MS3 20:02
PROVIDERS: Admitting Provider Surgery; Emergency Provider Student in an Organized Health Care Education/Training Program; PCP Family Medicine; Visit Provider Surgery
PROC: 0DTJ4ZZ Resection of Appendix, Percutaneous Endoscopic Approach (ICD-10-PCS; CPT 44970; principal; 2022-12-03 17:45)
DX: K35.80 Unspecified acute appendicitis (principal); E66.01 Morbid (severe) obesity due to excess calories; Z68.41 Body mass index [BMI] 40.0-44.9, adult; E78.5 Hyperlipidemia, unspecified; Z79.899 Other long term (current) drug therapy; M19.90 Unspecified osteoarthritis, unspecified site; Z98.84 Bariatric surgery status
CPT/HCPCS: 44970; 00840; 74177; 80053; 81001; 83690; 85025; 88304; 96361; 96374; 96375; 96376; 99221; 99283; J7030; J7120; Q9967; A4216; C1760; G0378; J2405

== ENCOUNTER → 2023-08-22 | Outpatient (CLI) | payer MEDICAID, SELFPAY ==
--- NOTE | 2023-08-22 12:14 | BI_ITS ---
MAMMOGRAPHY - BILATERAL SCREENING REASON FOR EXAM: Female, 53 years old. Routine annual screening examination. PERTINENT HISTORY: Non-contributory. TECHNIQUE: Digital bilateral breast didier (3D mammographic acquisition) in the CC and MLO projections. 2-D mediolateral oblique (MLO) and craniocaudad (CC) views of both breasts were obtained. CAD: Full Field Digital Mammography with Computer Added Detection was performed. COMPARISON: Comparison is made with prior study dated June 14, 2020. FINDINGS: Breast Composition: The breasts are almost entirely fatty. There are no dominant masses or suspicious calcifications. Stable 5.1 mm well-defined nodule in the upper lateral aspect of the left breast suggestive of a small left intramammary lymph node. Stable small benign-appearing bilateral axillary lymph nodes. No other significant abnormalities are identified. There has been no significant change since the prior study. BI/SCRN MAMM (CAD)W/DIDIER BILAT IMPRESSION: Stable bilateral screening mammogram. Yearly follow-up mammogram recommended. (A) ASSESSMENT CATEGORY: BIRADS Category 2: Benign. A letter regarding these results will be sent to the patient by the facility within 30 days. Approximately 10% of breast cancers are not detected by mammography. A normal mammogram should not delay biopsy of a clinically suspicious abnormality. [id number] Electronically Signed: Thony Beasley MD at 14:01 EST ,
--- OUTSIDE RECORDS SUMMARY | 2023-08-22 12:35 | XMS RPT_ITS | CCD ---
Author Name Unknown Address [address] [facility] [address] [place] [address] Organization [facility] Care Team Providers Care Chief Dispatcher Name Role Phone SHARLENE NARANJO Primary Care Unavailable KIMBERLY MATUTE Admitting Unavailable Sharlene Naranjo MD Primary Care Provider SUDHAKAR CLEMENS Unavailable JIGAR LUCAS Primary Care Unavailable STERLING GARCIA Attending Unavailable STERLING GARCIA Admitting Unavailable GLO CHENG Referring Unavailable JIGAR LUCAS Primary Care Unavailable JESSICA OKEEFE Attending Unavailable GLO CHENG Attending Unavailable JIGAR LUCAS Primary Care Unavailable SHARLENE NARANJO Primary Care Unavailable Allergies Allergy Classification Reported Allergen(s) Allergy Type Date of Onset Reaction(s) Facility (1 source) Grass pollen; Translations: [GRASS POLLEN] Propensity to adverse reactions to drug (disorder) 0 [facility] Repository Problems Problem Classification Problem Date Documented Date Episodic/Chronic Abdominal pain (1 source) Right lower quadrant pain; Translations: [Right lower quadrant pain] Episodic Conditions associated with dizziness or vertigo (1 source) Dizziness and giddiness; Translations: [Dizziness] Onset: 08-13-2023 Episodic Delirium, dementia, and amnestic and other cognitive disorders (1 source) Unspecified mental disorder due to known physiological condition; Translations: [Cognitive dysfunction] Onset: 08-20-2023 Chronic Essential hypertension (1 source) Essential (primary) hypertension; Translations: [Hypertension, unspecified type] Onset: 08-11-2023 Chronic Malaise and fatigue (1 source) Other fatigue; Translations: [Fatigue, unspecified type] Onset: 08-20-2023 Episodic Miscellaneous mental health disorders (1 source) Psychophysiologic insomnia; Translations: [Psychophysiologic insomnia] Onset: 08-20-2023 Chronic Other ear and sense organ disorders (1 source) Unspecified hearing loss, unspecified ear; Translations: [Hearing loss, unspecified hearing loss type, unspecified laterality] Onset: 08-20-2023 Chronic Other lower respiratory disease (1 source) Snoring; Translations: [Snoring] Onset: 08-20-2023 Episodic Other nervous system disorders (1 source) Other chronic pain; Translations: [Other chronic pain] Onset: 08-20-2023 Chronic Other nervous system disorders (1 source) Ataxia, unspecified; Translations: [Ataxia] Onset: 08-11-2023 Episodic Results Test Name Value Interpretation Reference Range Facil ity Encounters Encounter Date Encounter Type Care Provider Facility Start: 08-20-2023 End: 08-20-2023 ambulatory [facility] Facility:[facility] Start: 08-15-2023 End: 08-15-2023 ambulatory GLO [facility] Facility:[facility] Start: 08-11-2023 End: 08-13-2023 ambulatory SUDHAKAR CLEMENS Facility:[facility] Start: 12-03-2022 End: 12-03-2022 ambulatory SHARLENE Almaraz DELANO Facility:[facility] Start: 12-03-2022 End: 12-03-2022 Patient encounter procedure Portillo Dorman APRN.ONCOLOGY PHYSICIAN Work Phone: [facility] Procedures Date Procedure Procedure Detail Performing Clinician Start: 05-07-2021 Antibody screen Plan of Treatment Date Care Activity Detail Author Start: 05-08-2024 DIABETES SCREEN DIABETES SCREEN [facility] Start: 07-28-2022 DEPRESSION ASSESSMENT DEPRESSION ASS ESSMENT [facility] Start: 09-12-2021 COVID-19 VACCINE (4 - Booster for Moderna series) COVID-19 VACCINE (4 - Booster for Moderna series) [facility] Start: 2019 SHINGRIX VACCINE (1 of 2) SHINGRIX V ACCINE (1 of 2) [facility] Start: 2014 COLOGUARD (FIT-DNA) COLOGUARD (FIT-D NA) [facility] Start: 2014 Colonoscopy COLONOSCOPY [facility] Start: 2014 COLORECTAL CANCER SCREENING COLORECTAL CANCER SCREENING [facility] Start: [address] [facility] Start: 2014 FECAL OCCULT BLOOD FECAL OCCULT BLOO D [facility] Start: 2014 LIPID SCREEN LIPID SCREEN [facility] Start: 2014 SIGMOIDOSCOPY SIGMOIDOSCOPY [facility] Start: 2009 Mammography MAMMOGRAM [facility] Start: 1999 HPV TESTING HPV TESTING [facility] Start: 1990 PAP TESTING PAP TESTING [facility] Start: 02-21-1988 Urine microalbumin profile DTAP,TDAP ,TD (1 - Tdap) [facility] Start: 1987 HEPATITIS C SCREENING HEPATITIS C SC REENING [facility] Start: 1987 HIV SCREENING HIV SCREENING [facility] Start: 1970 HEPATITIS B (1 of 3 - 3-dose series) HEPATITIS B (1 of 3 - 3-dose series) [facility] Payers Date Payer Category Payer Unknown [id number] 2022 Unknown ZARA MONTALVO SS PPO [id number] 2022-Present [phone] [facility] [id number] [place] [address] PPO [id number] 2022 Unknown [id number] 1970 Unknown [id number] Unknown [id number] Social History Date Type Detail Facility [facility] consumption unknown [facility] Start: 1970 Sex Assigned At Not on file C [facility] Clinical Notes 05-07-2021 to 08-20-2023 Portillo Dorman APRN.ONCOLOGY PHYSICIAN - 12/03/2022 2:21 PM EDT Note Date & Type Note Facility 08-20-2023 Note HNO ID: [id number] Author: JESSICA OKEEFE AUD Service: ? Author Type: Oxygen Therapist Type: Progress Notes Filed: 08/20/2023 14:14 Note Text: [facility] [place] AUDIOLOGIC EVALUATION REPORT Name: Debi Wei F#: [id number] Date of Service: 08/20/2023 Date of : 1970 Age: [age] year old Referred by: Glo Cheng [address] [facility] [address] Referred for: Evaluation of suspected change in hearing, tinnitus, or balance. Referral documented: In an order in [facility] Patient's major complaints: Reduced hearing in the right ear, Tinnitus in the right ear, Dizziness/vertigo/imbalance Debi Wei was seen for an initial audiologic evaluation. See SmartForm Audiogram for additional reported history and symptoms. IMPRESSIONS RIGHT EAR: Sensorineural hearing loss LEFT EAR: Sensorineural hearing loss Comparison of today's results with previous test results: No previous results available AUDIOLOGIC EVALUATION Following is a brief interpretation of the obtained findings from the audiologic evaluation. Refer to the Auditory Test Record for complete audiometric results. The patient was counseled about the test findings and appropriate audiologic recommendations were made. SUMMARY: Audiogram can be viewed under Forms/Audiology/SmartForm. OTOSCOPY RIGHT EAR: Otoscopic inspection revealed ear canal was clear with an identifiable cone of light. LEFT EAR: Otoscopic inspection revealed ear canal was clear with an identifiable cone of light. TYMPANOMETRY Description of procedure: This test is an objective evaluation of middle ear function. CPT code: 71270 RIGHT EAR: Normal ME function. LEFT EAR: Normal ME function. PURE TONE AUDIOMETRY AND SPEECH TESTING Description of procedure: This test is an objective evaluation hearing sensitivity via air and bone conduction and speech recognition testing. CPT code:89574 RIGHT EAR: Hearing Sensitivity: mild to moderately severe SNHL at 3000 - 8000 Hz. Word Recognition Score: Excellent (90-100%). WRS is consistent with hearing sensitivity. Words were presented at 50 dB HL approximates (45-55 dB HL) intensity level for average conversational speech. The NU-6 Ordered by Difficulty Word List (10 words) was used for testing. LEFT EAR: Hearing Sensitivity: mild to moderate SNHL at 4000 - 8000 Hz. Word Recognition Score: Excellent (90-100%). WRS is consistent with hearing sensitivity. Words were presented at 50 dB HL which approximates (45-55 dB HL) intensity level for average conversational speech. The NU-6 Ordered by Difficulty Word List (10 words) was used for testing. RECOMMENDATIONS * Re-evaluation as medically indicated. * Return if a change in hearing is noted. JOSEPH Nickerson Abbrev- iation Definition Degree of hearing sensitivity dB range WNL within normal limits WNL 0 - 20 SNHL sensorineural hearing loss Mild 20-40 CHL conductive hearing loss Moderate 40-55 MHL mixed hearing loss Moderately-Severe 55-70 WRS word recognition score Severe 70-90 ME middle ear Profound 90 + TM tympanic membrane [facility] 08-15-2023 Note HNO ID: [id number] Author: GLO CHENG MD Service: ? Author Type: Physician Type: Progress Notes Filed: 08/15/2023 14:04 Note Text: NEUROLOGY CONSULTATION, [facility] REASON FOR CONSULTATION: Cognitive concerns Patient Debi Wei is self referred. My final recommendations will be communicated back to the patient by way of Electronic Medical record/[employer] or letter to patient via US mail. HISTORY OF PRESENT ILLNESS Debi Wei is a 53 year old right handed female with 14 years of formal education, whom we are asked to see for evaluation of cognitive concerns. History was provided by patient and her son, Anand (NATALIIA). Additional reports including outside records, imagings were reviewed. Patient also has a general neurology consult coming up on 08/19/2023. PMH of HLD, HTN, depression and anxiety, subclinical hypothyroidism, S/P Dale-en-Y gastric bypass surgery , covid 06/2023 Patient was hospitalized from 08/11 to 08/13/2023 with dizziness, speech problem feeling like she was going to pass out. She had negative EEG and orthostatics. She described periods of sweating, feels like passing out and tunnel vision. In the past couple of weeks, she also reported speech difficulty. She had severe pain behind her right eye, on her way to hospital and in the hospital. That has improved, she was unable to open her eye back then, now she can open them. 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 Then she started in in November 2021. She resigned from [employer] because they were not giving her time for hip recovery. Her family asked her to move in with them, and she has been staying with them since. Her memory problem started in December or January 2023, and she quit her job in March 2023 due to memory issues, as she was forgetting important things. She attributed that to stress. However memory did not improve. For the past 2 months, she has worsening short term memory problem, will forget what she said and needed to write everything down. She also reports worsening vision. Her mother also in September 2022. 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 That was very stressful. After she stopped working, she was also having a lot of joint problem. She had two hip replacements, a lot of chronic pain in the last year. There is no new medications around December or January 2023. She sleeps not more than 4 hours, she will sleep through the 4 hours, but she takes melatonin. She always has poor sleep, at least 20 years. She is in 3rd shift all her career. She does not always have pain. Her headache is like knife stabbing headaches in the last month. She lies down around 7pm because of pain and fatigue, but not sleep until 1am. Falling asleep when she is ready is not a problem. She might wake up in the middle of the night, once a night, if it is 3:45am, then she does not return to sleep. She usually does not return to sleep. She is unable to turn her mind off. She takes naps, about twice a week. Maybe 2 hours, depending on her grandchild. When she was working, she slept better and longer. She did not wake up in the middle of the night. She would sleep for 5 hours. She does not feel well rested in general. She has a lot of things in her mind. She describes high anxiety. She feels she is a perfectionist, and is very detailed. She was very close to her mother. Her mother gave her a lot of emotional support. She cannot talk to her children the way she could talk to her mother. Patient is still grieving. She snores loudly, can be hear outside her room. She tossed and turned, but no dream enactment behavior. She will use the wrong word/name for object. She also get tired easily. She has not been driving in the last week. She has no problem with navigation. But the last year, she has scratched her trunk. Her glasses are two years old, but her vision problem worsened in the last year. She manages her own finances without problem, but in the last 2 weeks there has been impulsive buying. She bought a plastic joint maker yesterday from [employer] that costs her $200. She also spends a lot on the kids. She feels she is spending too much, and is asking her son to manage it for her. She had worked on exercise and diet for a while, but has been having trouble with weight loss for the last 2 years. Her weight has been stable for the last year. She has not seen endocrinology for weight loss. She has chronic tinnitus, and has right hearing loss MRI brain on 08/12/2023 showed mild cortical and central atrophy, no significant hippocampal volume loss. Mild white matter abnormalities, no remote microhemorrhage, no abnormal enhancement. Serological studies Unremarkable CMP, CBC on 08/12/2023 Unremarkable heavy metal screen Utox negative B12 >2000, TSH 0.63 on 08/11/2023 SH: no alcohol (more content not included)... [facility] 08-13-2023 Note HNO ID: [id number] Author: BRODY TERRELL LSW Service: Care Management Author Type: Desk Sergeant Type: Care Mgt Progress Note Filed: 08/13/2023 14:43 Note Text: CARE MANAGEMENT DISCHARGE NOTE SERVICE DATE: August 13, 2023 SERVICE TIME: 2:39 PM Admission Date: 08/11/2023 LOS: 0 days Discharge Arrangement Discharge Arrangement: Home with Self Care Provider Name: Jigar Lucas MD Caregiver Assessment Caregiver is ready, willing and able to meet the patient's needs as recommended by the inter-professional team: No Caregiver needed Transportation Arrangements Transportation Arrangements: Car Date of Trip: 08/13/23 Destination: home Handoff Communication: Handoff to: Primary Care Physician Primary Care Physician Name/Phone: Jigar Lucas MD/ [phone] Additional Information: N/A DC order placed. Pt will DC with self care. Family to transport at DC. CMSW rounded with RN. No additional CM needs. SIGNATURE: LUBA Light PATIENT NAME: Debi Wei DATE: August 13, 2023 TIME: 2:39 PM CONTACT #: [phone] [facility] 08-13-2023 Note HNO ID: [id number] Author: SUDHAKAR CLEMENS MD Service: Neurology General Author Type: Physician Type: Plan of Care Filed: 08/13/2023 11:34 Note Text: TELENEUROLOGY CONSULT PROGRESS NOTE SERVICE DATE: 08/13/2023 SERVICE TIME: 11:31 AM Results reviewed and the recommendations are: MRI did not reveal etiology for her symptoms. Incidental infundibula vs tiny aneurysms noted on MRA and recommend outpatient cerebrovascular clinic evaluation. EEG with no epileptiform change Orthostatic vitals are negative Labs still pending. Consider outpatient [facility] evaluation Teleneurology service will follow up pending studies. SIGNATURE: Sudhakar Clemens MD PATIENT NAME: Debi Wei DATE: August 13, 2023 TIME: 11:31 AM PAGER/CONTACT #: [facility] 08-13-2023 Note HNO ID: [id number] Author: STERLING GARCIA MD Service: General Internal Medicine Author Type: Physician Type: Progress Notes Filed: 08/14/2023 08:30 Note Text: INTERNAL MEDICINE PROGRESS NOTES Patient Name: Debi Wei DATE of SERVICE: 08/13/2023 TIME of SERVICE: 8:47 AM Admitting Physician: Sterling Garcia MD ASSESSMENT AND PLAN: 1. Dizziness, presyncope, constellation of neurological symptoms including episodic amnesia, word finding difficulty, tunnel vision, fatigue, MARTIN - s/b Neurology, Dr. Clemens. MRI AND MRA of brain and EEG done and findings as below. Labs for evaluation in process. Orthostatic vitals WNL. Advised outpatient follow up with Neurology AND Brain health clinic. 2. S/P Dale-en-Y gastric bypass surgery - B12 level not low. 3. Hyperlipidemia - on Atorvastatin SENIOR TALENT MANAGEMENT CONSULTANT 4. HTN - Amlodipine started in the ER. 5. Depression, anxiety, Berevement - on Duloxetine SENIOR TALENT MANAGEMENT CONSULTANT 6. Wt loss, ketonuria, Obesity 7. H/o subclinical Hyperthyroidism - TSH WNL 8. OA, s/p B/L THR, s/p lumbar spine surgery 9. Constipation, S/p cholecystectomy Discharge home from Observation. INTERVAL HPI: MRI AND MRA of brain done yesterday reported no acute findings or findings to explain patient's symptoms. EEG done reported no epileptiform discharges though it did show findings as noted below. Pt reports feeling much better today and inquiring about discharge. Family at bedside and inquiring about follow up plans. ROS: GENERAL: Positive for fatigue, wt loss RESPIRATORY: No cough, wheeze or dyspnea CARDIOVASCULAR: Vague chest pain yesterday, no palpitation or syncope GI: No nausea, vomiting, or diarrhea and Positive for reduced appetite NEURO: SEE HPI Medications: Current Facility-Administered Medications Medication Dose Route Frequency NaCl 0.9% iv flush bag 20 mL INTRAVENOUS PRN NaCl 0.9% iv infusion 75 mL/hr INTRAVENOUS CONTINUOUS acetaminophen 650 mg tab(s) (TYLENOL) 650 mg ORAL q 4 H PRN docusate sodium 100 mg cap(s) (COLACE) 100 mg ORAL BID PHYSICAL EXAM: BP 148/91 Pulse 60 Temp 36.5 ?C (97.7 ?F) (Oral) Resp 16 Ht 172.7 cm (5' 8 ) Wt 120 kg (264 lb 8.8 oz) SpO2 96% BMI 40.22 kg/m? Body mass index is 40.22 kg/m?. GENERAL: Alert, no distress NECK: No jugulovenous distention LUNGS: Lungs clear to auscultation CARDIAC: No murmur, Regular ABDOMEN: Abdomen soft, non-tender EXTREMITIES: No edema, pallor or cyanosis NEURO: AAO, normal speech, no gross focal weakness DATA: Recent Labs 08/12/23 0412 08/11/23 1817 WBC 6.72 9.02 HB 12.8 14.3 HCT 39.4 44.0 PLT 245 289 NA 141 142 K 3.8 3.9 CHLOR 107* 104 CO2 26 26 CREAT 0.65 0.68 BUN 12 18 GLUC 88 95 TPROT 6.4 7.6 ALB 3.6* 4.3 MG -- 2.0 CA 9.1 9.5 ALKPHOS 88 106 TBILI 0.5 0.3 AST 18 22 ALT 21 25 CRP <0.3 -- Additional Lab Data: Component Latest Ref Rng AND Units 08/12/2023 WSR 0 - 20 mm/hr 13 CRP <0.9 mg/dL <0.3 Component Latest Ref Rng AND Units 08/11/2023 TSH 0.270 - 4.200 mIU/L 0.630 Ethanol <11 mg/dL <11 Vitamin B12 232 - 1,245 pg/mL >2,000 (H) Component Latest Ref Rng AND Units 08/11/2023 08/11/2023 6:17 PM 7:26 PM MARILUZ High Sensitivity <12 ng/L <6 <6 Component Latest Ref Rng AND Units 05/08/2021 Iron 50 - 170 UG/DL 20 (L) TIBC 221 - 481 UG/DL 263 Iron % Saturation 22 - 44 % 8 (L) Ferr 8.0 - 307.0 NG/ML 58.3 Component Latest Ref Rng AND Units 08/12/2023 Phencyclidine Negative Negative Benzodiazepines Urine Negative Negative Cocaine Urine Negative Negative Amphetamines Negative Negative Cannabinoids, Urine Negative Negative Opiates Negative Negative Barbiturates Negative Negative Ethanol, Urine <11 mg/dL <11 Oxycodone, Urine Negative Negative Component Latest Ref Rng AND Units 08/12/2023 Color Yellow Yellow Clarity Clear Clear Glucose, Urine Negative Negative Bilirubin, Urine Negative Negative Ketones, Urine Negative 1+ (A) Specific [place], Ur 1.005 - 1.030 1.010 Hemoglobin/Blood,Ur Negative Negative pH, Urine 5.0 - 8.0 6.5 Protein, Urine Negative Negative Urobilinogen 0.2-1.0 EU/dL 0.2 EU/dL Nitrites Negative Negative Leukest Negative 1+ (A) WBC, Urine 0-5 /HPF 0-5 /HPF RBC, Urine 0-3 /HPF 0-3 /HPF Bacteria None Seen /HPF Rare (A) 05/03/2021: Sed Rate 0 - 30 mm/hr 25 CRP(Inflammation) <=10.0 mg/L <2.9 Rheumatoid Factor 0.0 - 14.0 IU/mL <10.0 CCP IgG Antibody 0.0 - 20.0 Unit <15.6 SUNITA <1:80 <1:80 11/30/2020: Vitamin D, Total 30.0 - 100.0 ng/mL 47.6 Imaging: EXAMINATION: CHEST RADIOGRAPH (2 VIEW FRONTAL AND LATERAL) CLINICAL HISTORY: Syncope/presyncope, cardiac cause suspected EXAM DATE/TIME: 08/11/2023 6:49 PM COMPARISON: No relevant prior studies available. RESULT: Lines, tubes, and devices: None. Lungs and pleura: No consolidation. No lung mass. No pleural effusion. No pneumothorax. Cardiomediastinal silhouette: Normal cardiomediastinal silhouette. Bones and soft tissues (more content not included)... [facility] 08-12-2023 Note HNO ID: [id number] Author: BRODY TERRELL LSW Service: Care Management Author Type: Desk Sergeant Type: Care Mgt Initial Assessment Filed: 08/12/2023 16:31 Note Text: CARE MANAGEMENT: ASSESSMENT AND DISCHARGE PLAN SERVICE DATE: August 12, 2023 SERVICE TIME: 4:24 PM PCP: Jigar Lucas MD Primary Contact: Extended Emergency Contact Information Primary Emergency Contact: Robby Wei Address: [address] [place] [address] Mobile Relation: Son Secondary Emergency Contact: Anand Wei Mobile Relation: Son Admission Status: Observation Insurance Provider: [facility] Discharge Planning requested by: Per Department Practice Potential Transition Plans Home Advance Directives Current Advance Directive: Living Will In Chart: No Current Living Arrangements and Support Lives with: Children Type of Residence: Private Residence (House) Does the patient have to climb stairs at home?: Yes;stairs outside the home Support: Children How do you manage to accomplish the following: Independent: Ambulation;Bathe/Shower;Dress;Meal s/Meal Prep;Going to the bathroom;Medication Management Needs Assistance: Transportation to appointments/community Current Services/Equipment Current Post-Acute Service(s): None Discharge Planning Patient Goal(s): Be able to go home, General wellness [place] of Choice Explained: [place] of Choice Given: No Reason Not Given: No placements necessary Are you interested in bedside delivery of your medications? No Discharge Planning Participant(s): Patient Patient/Family Comments: Caregiver Assessment: Caregiver is ready, willing and able to meet the patient's needs as recommended by the inter-professional team: Yes Name of Caregiver: Family support Transport at Discharge: Transportation Arrangements: Car Destination: home Needs Prior to Discharge: Needs Prior to Discharge: To Be Determined;Other: See Comment;Discharge Transportation (medical transport) Post-Acute Discharge Plan: Pt is 53 yo who presents with dizziness. IPTA. Neuro consulted. Pt states that she lives with her son and his family in a 1SH with 4 steps outside. Son, Anand, to transport at [place]. SIGNATURE: LUBA Light PATIENT NAME: Debi Wei DATE: August 12, 2023 TIME: 4:24 PM CONTACT #: [phone] [facility] 08-12-2023 Note HNO ID: [id number] Author: ISHAAN NORTON APRN.JOSÉ Service: ? Author Type: Nurse Practitioner Type: Progress Notes Filed: 08/12/2023 01:15 Note Text: INTERNAL MEDICINE PROGRESS NOTE SERVICE DATE: 08/12/2023 SERVICE TIME: 0000 Primary Attending: Dr. Sterling Garcia MD Subjective CHIEF COMPLAINT: Dizziness (Off and on for a while I just thought it was hypoglycemia. Patient states that she is not formally diagnosed with this ) HPI: This is a 53 year old female with a past medical history significant for HLD and anisa-en-y gastric bypass, who presents with dizziness from the [facility]. Patient is alert and oriented from home. Patient states she has been experiencing periods of light headedness since mid-June. Patient is also experiencing periods of forgetfulness and slow speech. Upon exam patient did forget mid sentence what we were discussing regarding her health history and asked examing ENGINE HOUSE HELPER what was I saying? . Patient reports earlier today when she was experiencing her episode of dizziness she also had a headache and chest pain. Patient states she has had decreased appetite also for last month. ED work up significant for Vit B12 greater than 2,000. All other lab work was unremarkable. Patient treated with 650 mg acetaminophen. 5 mg amlodipine, and 1 L NS bolus while in ED. Patient to be admitted under observation to [facility] [facility]. History reviewed. No pertinent past medical history. None Review of Systems Constitutional: Positive for appetite change. Negative for activity change and fever. HENT: Negative for congestion and rhinorrhea. Eyes: Negative for pain, redness and itching. Respiratory: Negative for chest tightness and shortness of breath. Cardiovascular: Positive for chest pain. Negative for leg swelling. Gastrointestinal: Negative for abdominal pain, nausea and vomiting. Endocrine: Negative for DM on oral agent, DM w/ diet control and DM on insulin. Genitourinary: Negative for difficulty urinating, frequency and urgency. Musculoskeletal: Negative for gait problem. Neurological: Positive for dizziness and light-headedness. Psychiatric/Behavioral: Negative for confusion. The patient is not nervous/anxious. Objective Physical Exam Vitals and nursing note reviewed. Constitutional: General: She is not in acute distress. Appearance: Normal appearance. HENT: Head: Normocephalic. Right Ear: External ear normal. Left Ear: External ear normal. Nose: Nose normal. No congestion. Mouth/Throat: Mouth: Mucous membranes are moist. Pharynx: Oropharynx is clear. No oropharyngeal exudate. Eyes: Conjunctiva/sclera: Conjunctivae normal. Pupils: Pupils are equal, round, and reactive to light. Cardiovascular: Rate and Rhythm: Normal rate and regular rhythm. Pulses: Normal pulses. Heart sounds: Normal heart sounds. No murmur heard. No friction rub. No gallop. Pulmonary: Effort: Pulmonary effort is normal. Breath sounds: Normal breath sounds. No stridor. No wheezing, rhonchi or rales. Abdominal: General: Abdomen is flat. Bowel sounds are normal. Palpations: Abdomen is soft. Musculoskeletal: General: Normal range of motion. Cervical back: Normal range of motion. Right lower leg: No edema. Left lower leg: No edema. Skin: General: Skin is warm and dry. Neurological: General: No focal deficit present. Mental Status: She is alert and oriented to person, place, and time. Motor: No weakness. Gait: Gait normal. Psychiatric: Mood and Affect: Mood normal. Behavior: Behavior normal. Thought Content: Thought content normal. Judgment: Judgment normal. Patient Vitals for the past 24 hrs: BP Temp Temp src Pulse Resp SpO2 08/12/23 0030 152/74 -- -- 59 -- 95 % 08/12/23 0000 130/88 -- -- 65 -- 96 % 08/11/23 2330 125/69 -- -- 62 -- 95 % 08/11/23 2300 130/61 -- -- 60 -- 95 % 08/11/23 2200 143/80 -- -- 68 -- 96 % 08/11/23 2130 182/83 -- -- 60 -- 96 % 08/11/23 2100 166/79 -- -- 63 -- 96 % 08/11/232029 162/74 -- -- 67 -- -- 08/11/231999 167/81 -- -- 60 -- 98 % 08/11/23 1930 182/88 -- -- 55 -- 99 % 08/11/23 1900 192/87 -- -- 59 -- 97 % 08/11/23 1800 141/78 -- -- 68 22 96 % 08/11/23 1748 155/74 36.6 ?C (97.8 ?F) [place] 76 16 97 % There is no height or weight on file to calculate BMI. DATA: Diagnostic tests reviewed for today's visit: Most recent labs and imaging results. I have personally reviewed the images and the xray shows: No acute radiographic abnormality.. Past 72 Hour Labs: Recent Labs 08/11/23 1817 WBC 9.02 RBC 4.81 HB 14.3 HCT 44.0 MCV 91.5 MCH 29.7 MCHC 32.5 RDWCV 12.6 PLT 289 MPV 10.2 NEUTP 67.7 LYMPHP 23.2 MONOP 7.2 BASOP 0.4 ABSNEUT 6.10 ABSMONO 0.65 ABSEOSIN 0.11 ABSBASO 0.04 GLUC 95 BUN 18 CREAT 0.68 NA 142 K 3.9 CHLOR 104 CO2 26 TPROT 7.6 ALB 4.3 CA 9.5 ALKPHOS 106 TBILI 0.3 AST 22 ALT 25 MG 2.0 ASSESSMENT: -Dizziness (more content not included)... [facility] 12-03-2022 Note HNO ID: [id number] Author: Portillo Dorman APRN.ONCOLOGY PHYSICIAN Service: ? Author Type: Nurse Practitioner Type: Progress Notes Filed: 12/03/2022 2:23 PM Note Text: Nontoxic-appearing female presents urgent care accompanied by friend. Chief complaint right-sided abdominal pain. Duration of symptom 1 day. Associated symptoms 9 out of 10 right-sided abdominal pain. Patient states unable to find a comfortable position. Does have some vomiting. Pain is increased by palpation over right abdominal region. With patient presenting symptoms recommend patient be seen the ED for further evaluation care. Patient/friend verbalized understanding agrees with plan of care. Will be seen in ED at [facility]. Portillo Dorman APRN.CNP [facility] 12-03-2022 History of Present illness Narrative Nontoxic-appearing female presents urgent care accompanied by friend. Chief complaint right-sided abdominal pain. Duration of symptom 1 day. Associated symptoms 9 out of 10 right-sided abdominal pain. Patient states unable to find a comfortable position. Does have some vomiting. Pain is increased by palpation over right abdominal region. With patient presenting symptoms recommend patient be seen the ED for further evaluation care. Patient/friend verbalized understanding agrees with plan of care. Will be seen in ED at [facility]. Portillo Dorman APRN.JOSÉ documented in this encounter [facility] 05-10-2021 Note [facility] christopher Melgaron 05-08-2021 Note Occupational Therapy Inpatient Evaluation Medical Diagnosis: s/p Right AMINA performed by Dr. Storey on 05/07/21 OCCUPATIONAL PROFILE AND HISTORY Therapy Diagnosis: Rank Code Description 1 Z74.1 Need for assistance with personal care Demographics: Age: 51Y Gender: Female Primary Language: Citizen Of [place] Preferred Language: Citizen [place] Referring Service/Team: Orthopedics Past Medical History: hyperlipidemia, osteoarthritis, hypothyroidism, depression, Cholecystectomy, bariatric surgery, hysterectomy, back surgery, left hip replacement History of Present Illness: Date of Surgery: 05/07/2021 Additional Information: Elective Surgery Date of Admission: 05/07/2021 5:12:00 AM Rehabilitation Precautions/Restrictions: WBAT RLE, Anterior hip precautions RLE, exit bed left Imaging/Testing Results from Chart: n/a Prior Level of Functioning: Self Care: Patient completed the activities by him/herself, with or without an assistive device, with no assistance from a helper. Functional Cognition: Patient completed the activities by him/herself, with or without an assistive device, with no assistance from a helper. SENIOR TALENT MANAGEMENT CONSULTANT use of cane for ambulation. Denies falls. Indep with ADL. Shares cooking and cleaning. Noted RLE gives out. Noted decreased endurance SENIOR TALENT MANAGEMENT CONSULTANT Patient/Caregiver Goals: Patient's functional goals: To go home Pain: Patient currently has pain. Location: R hip Type: Acute Quality: Aching. Pain Scale: Visual Analog (VAS). Patient reports a pain level of 7 out of 10. Patient's acceptable level of pain 0 out of 10. Pain does not interfere with any activity at this time. Pain is alleviated by: pain meds [facility] PATIENT NAME: DEBI WEI [address] [facility] [address] MEDICAL REC #: [id number] [place] [address] ADMIT DATE: SERVICE DATE: 05/08/21 Occupational Therapy Assessment ATTENDING PHY: Mia Storey MD Pain is exacerbated by: movement Interventions: Repositioned patient. Home Environment: Patient lives alone, but assistance is available. Son x2, DIL 17/02 Patient lives in a single family home. Home is single level. Patient is not required to manage stairs within the home. First floor full bathroom setup available. There are 2 steps to enter the home, with no hand railings. There is no ramp available to enter home. 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 Recreational Activities/Hobbies: Family OBJECTIVE/OCCUPATIONAL PERFORMANCE Activities of Daily Living Current Status Previous Status ADLs Feeding Independent - Grooming Supervision - Bathing-UE Supervision - Bathing-LE Supervision - Dressing-UE Supervision - Dressing-LE Supervision - Toileting Supervision - AM-PAC Daily Activities: Putting On/Taking Off Lower Body Clothing: A little help needed Bathing:: A little help needed Toileting: A little help needed Putting On/Taking Off Upper Body Clothing: A little help needed Grooming: A little help needed Eating a Meal: No help needed Raw Score = 19 , AM-PAC t-Scale Score = 40.22 and G-Code Modifier = CK Functional Mobility: Bed Mobility: Patient moves from supine to/from sit requiring minimal assistance. assist to manage marquez LE into bed Transfers: Patient transferred sit to/from stand requiring supervision. Patient used the following equipment: Arms of chair. multiple reps complete Patient transferred to/from the toilet requiring supervision. Patient used the following equipment: Raised toilet seat. Grab bars. Locomotion/Gait/Ambulation: Patient was supervision with [facility] PATIENT NAME: DEBI WEI [address] [facility] [address] MEDICAL REC #: [id number] [place] [address] ADMIT DATE: SERVICE DATE: 05/08/21 Occupational Therapy Assessment ATTENDING PHY: Mia Storey MD gait/ambulation for 250 ft . Patient requires the following assistive device(s): Rolling walker. slowed pacing, no LOB, denied dizziness Range of Motion Upper Extremity: Grossly within functional limits Strength Upper Extremity: Grossly within functional limits Balance: Dynamic balance in a seated position is good. Dynamic balance in a standing position is good. w/FWW Tone/Spasticity: No relevant impairments. Sensation: pt denies numbness/tingling Fine Motor Coordination: Bilateral Hands: Fine motor coordination is not impaired. Gross Motor Coordination: Upper extremity gross motor coordination is intact. Edema: Edema is present. Location: Right lower extremity edema- Minimal. Location: Lower Extremity Function: R hip dressing dry and intact Vision: Within functional limits. Cognition: AandO x4, pt able to follow multistep commands Percept (more content not included)... [facility] 05-08-2021 Note [facility] 05-07-2021 Note Physical Therapy Inpatient Evaluation Medical Diagnosis: s/p Right AMINA performed by Dr. Storey on 05/07/21 Therapy Diagnosis: Rank Code Description 1 R26.81 Unsteadiness on feet Demographics: Age: 51Y Gender: Female Primary Language: Citizen [place] Preferred Language: Citizen [place] Referring Service/Team: Orthopedics Past Medical History: hyperlipidemia, osteoarthritis, hypothyroidism, depression, Cholecystectomy, bariatric surgery, hysterectomy, back surgery, left hip replacement History of Present Illness: Date of Surgery: 05/07/21 Additional Information: Elective Surgery Date of Admission: 05/07/2021 5:12:00 AM Rehabilitation Precautions/Restrictions: WBAT RLE, Anterior hip precautions RLE, exit bed left Imaging/Testing Results from Chart: n/a SUBJECTIVE Prior Level of Functioning: Indoor Mobility: Patient completed the activities by him/herself, with or without an assistive device, with no assistance from a helper. Stairs: Patient completed the activities by him/herself, with or without an assistive device, with no assistance from a helper. SENIOR TALENT MANAGEMENT CONSULTANT use of cane for ambulation. Denies falls. Indep with ADL. Shares cooking and cleaning. Noted RLE gives out. Noted decreased endurance SENIOR TALENT MANAGEMENT CONSULTANT Prior Device Use: Performance GG110. Prior Device None of Above Yes Patient/Caregiver Goals: Patient's functional goals: To go home Pain: Patient currently has pain. Location: RLE Type: Acute Quality: Aching. Pain Scale: Visual Analog (VAS). Patient reports a pain level of 3 out of 10. [facility] PATIENT NAME: DEBI WEI [address] [facility] [address] MEDICAL REC #: [id number] [place] [address] ADMIT DATE: SERVICE DATE: 05/07/21 Physical Therapy Assessment Report ATTENDING PHY: Mia Storey MD Patient's acceptable level of pain 0 out of 10. Interferes with physical activity. Pain is alleviated by: Pain is exacerbated by: Movement Interventions: Repositioned patient. Home Environment: Patient lives alone, but assistance is available. Son DIL. ZOË bañuelos 2 whom is 24.7 Patient lives in a single family home. Home is single level. Patient is not required to manage stairs within the home. First floor full bathroom setup available. There are 2 steps to enter the home, with no hand railings. There is no ramp available to enter home. 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 Orientation: Oriented to person, place, time, and situation. Following Commands: Patient is able to follow 3-step commands. Range of Motion Upper Extremity: Grossly within functional limits Lower Extremity: Grossly within functional limits Strength Upper Extremity: Grossly within functional limits Lower Extremity: Grossly within functional limits Tone/Spasticity: Within Functional Limits throughout. Sensation: Grossly intact. Balance: Independent and within functional limits. Therapeutic/Functional Activities: Bed Mobility: All bed mobility including supine to sit, rolling, scooting. requiring supervision. Pt able to lift and lower bilat LE Transfers: Patient transferred sit to/from stand requiring stand by assistance. Patient used the following equipment: Arms of chair. Controlled eccentrically Patient transferred to/from the toilet requiring stand by assistance. Patient used the following equipment: Grab bars. Locomotion/Gait/Ambulation: Patient was stand by assist with gait/ambulation for 60 feet x 2 . Patient requires the following assistive device(s): Rolling walker. Step to gait pattern, progressed to short step length reciprocal gait pattern [facility] PATIENT NAME: DEBI WEI [address] [facility] [address] MEDICAL REC #: [id number] [place] [address] ADMIT DATE: SERVICE DATE: 05/07/21 Physical Therapy Assessment Report ATTENDING PHY: Mia Storey MD Gait was completed at: Spinal not resolved within 4 hours Completed at 1515 Gait Deviations: No gait deviations. Stairs: Not assessed. AM-PAC Basic Mobility: Turning Over in Bed: No difficulty Sitting/Standing Chair with Arms: No difficulty Lying on Back to Sitting on Side of Bed: A little difficulty Moving To/From Bed to Chair: A little help needed Walking in Hospital Room: A little help needed Climbing 3-5 Steps with Railing: A little help needed Raw Score = 20 , AM-PAC t-Scale Score = 47.67 and G-Code Modifier = CJ Vital Signs: Not assessed. Interventions: Evaluation LOW Complexity Therapeutic Exercise: AP, LAQ, gut sets, educated on PT plan of care, educated on mobility benefits, educate (more content not included)... [facility] documented in this encounter [facility] Summary Purpose Family History No Family History Records FoundNo Family History Records FoundNo Family History Records FoundNo Family History Records FoundNo Family History Records Found Advance Directives No Advanced Directives Records FoundNo Advanced Directives Records FoundNo Advanced Directives Records FoundNo Advanced Directives Records FoundNo Advanced Directives Records Found Additional Source Comments INFORMATION SOURCE (unrecogn ized section and content) DATE CREATED AUTHOR AUTHOR'S ORGANIZ ATION 05/07/2021 [facility] DATE CREATED AUTHOR AUTHOR'S ORGANIZ ATION 07/14/2021 [facility] DATE CREATED AUTHOR AUTHOR'S ORGANIZ ATION 08/14/2023 [facility] DATE CREATED AUTHOR AUTHOR'S ORGANIZ ATION 08/21/2023 [facility] Source Comments (unrecognize d section and content) In the event this informatio n is protected by the Federal Confidentiality of Alcohol and Drug Abuse Patient Records regulations: The Federal rules restrict any use of the information to criminally investigate or prosecute any alcohol or drug abuse patient.[facility] Care Teams (unrecognized sec tion and content) FOR RECORDS PERTAINING TO PATIENTS WHO ARE OR HAVE BEEN ENROLLED IN A CHEMICAL DEPENDENCY/SUBSTANCEABUSE PROGRAM, SOME INFORMATION MAY BE OMITTED. This clinical summary was aggregated from multiple sources. Caution should be exercised in using it in the provision of clinical care. This summary normalizes information from multiple sources, and as a consequence, information in this document may materially change the coding, format and clinical context of patient data. In addition, data may be omitted in some cases. CLINICAL DECISIONS SHOULD BE BASED ON THE PRIMARY CLINICAL RECORDS. [facility] [employer] [facility]. provides no warranty or guarantee of the accuracy or completeness of information in this document.
== END | disposition home or self-care (01) ==
LOC: OPBI 12:13
PROVIDERS: PCP Internal Medicine; Referring Provider Internal Medicine; Visit Provider Internal Medicine
DX: Z12.31 Encounter for screening mammogram for malignant neoplasm of breast (principal)
CPT/HCPCS: 77063; 77067

== ENCOUNTER → 2023-09-03 | Outpatient (CLI) | payer MEDICAID, SELFPAY ==
--- OUTSIDE RECORDS SUMMARY | 2023-09-03 19:05 | XMS RPT_ITS | CCD ---
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 SERVICE DATE: August 12, 2023 SERVICE TIME: 4:24 PM PCP: Jigar Lucas MD Primary Contact: Extended Emergency Contact Information Primary Emergency Contact: Robby Wei Address: [address] [place] [address] Mobile Relation: Son Secondary Emergency Contact: Anand Wei Mobile Relation: Son Admission Status: Observation Insurance Provider[facility] [employer] [facility] Discharge Planning requested by: Per Department Practice [...] Be able to go home, General wellness [place] of Choice Explained: [place] of Choice Given: No Reason Not Given: [...] steps outside. Son, Anand, to transport at [place]. SIGNATURE: LUBA Light PATIENT NAME: Debi Wei DATE: August 12, 2023 TIME: 4:24 PM CONTACT #: [phone] [facility] 08-12-2023 Note HNO ID: [id number] Author: ISHAAN NORTON APRN.BEHAVIORAL HEALTH THERAPIST Service: ? Author Type: Nurse Practitioner Type: [...] bypass, who presents with dizziness from the [facility]. Patient is alert and oriented from home. Patient states she has been experiencing periods of light headedness since mid-June. Patient is also experiencing periods of forgetfulness and slow speech. Upon exam patient did forget mid sentence what we were discussing regarding her health history and asked examing CLINICAL APPEALS AUDITOR what was I saying? . Patient reports [...] Patient to be admitted under observation to [facility]. History reviewed. No pertinent past medical history. [...] 166/79 -- -- 63 -- 96 % 08/11/23 2030 162/74 -- -- 67 -- -- 08/11/23 2000 167/81 -- -- 60 -- 98 % [...] 2.0 ASSESSMENT: -Dizziness (more content not included)... [facility] documented as of this encounter (statuses as of 08/28/2023) [facility]01-15[facility]20[facility] History of Past illness Narrative* Problem Noted Date Diagnosed Date Resolved Date Dizziness 08/11/2023 08/13/2023 documented as of this encounter (statuses as of 08/29/2023) [facility]20[facility] History of Past illness Narrative* Problem Noted Date Diagnosed Date Resolved Date Dizziness 08/11/2023 08/13/2023 documented as of this encounter (statuses as of 08/29/2023) [facility]20[facility] History of Past illness Narrative* Problem Noted Date Diagnosed Date Resolved Date Dizziness 08/11/2023 08/13/2023 documented as of this encounter (statuses as of 09/02/2023) [facility] History of Past illness Narrative* Problem Noted Date Diagnosed Date Resolved Date Dizziness 08/11/2023 08/13/2023 documented as of this encounter (statuses as of 09/02/2023) [facility]05-09-2023 NoteHNO ID: [id number] Author: Portillo Dorman APRN.BEHAVIORAL HEALTH THERAPIST Service: ? Author Type: Nurse Practitioner Type: [...] care. Will be seen in ED at [facility]. [facility] History of Present illness Narrative* Portillo Dorman APRN.CNP - 12/03/2022 2:21 PM EDT Nontoxic-appearing female presents urgent care accompanied by [...] care. Will be seen in ED at [facility]. Portillo Dorman APRN.CNP [facility] NoteOccupational Therapy Inpatient Evaluation Medical Diagnosis: s/p Right AMINA performed by Dr. Storey on 05/07/21 OCCUPATIONAL PROFILE AND HISTORY Therapy Diagnosis: Rank Code Description 1 Z74.1 Need for assistance with personal care Demographics: Age: 51Y Gender: Female Primary Language: Montenegrin Preferred Language: Montenegrin Referring Service/Team: Orthopedics Past Medical History: hyperlipidemia, [...] device, with no assistance from a helper. 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 Denies falls. Indep with ADL. Shares cooking and cleaning. Noted RLE gives out. Noted decreased endurance DRUM BARKER OPERATOR Patient/Caregiver Goals: Patient's functional goals: To go home Pain: Patient currently has pain. Location: R hip Type: Acute Quality: Aching. Pain Scale: Visual Analog (VAS). Patient reports a pain level of 7 out of 10. Patient's acceptable level of pain 0 out of 10. Pain does not interfere with any activity at this time. Pain is alleviated by: pain meds [facility] PATIENT NAME: DEBI WEI [address] [place] MEDICAL REC #: [id number] [place] [address] ADMIT DATE: SERVICE DATE: 05/08/21 Occupational Therapy Assessment ATTENDING PHY: Mia Storey MD Pain is exacerbated by: movement Interventions: Repositioned patient. Home Environment: Patient lives alone, but assistance is available. Son gonzales, DIL 17/02 Patient lives in a single family home. Home is single level. Patient is not required to manage stairs within the home. First floor full bathroom setup available. There are 2 steps to enter the home, with no hand railings. There is no ramp available to enter home. 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 assist to manage donna LE into bed Transfers: Patient transferred sit to/from stand requiring supervision. Patient used the following equipment: Arms of chair. multiple reps complete Patient transferred to/from the toilet requiring supervision. Patient used the following equipment: Raised toilet seat. Grab bars. Locomotion/Gait/Ambulation: Patient was supervision with [facility] PATIENT NAME: DEBI WEI [address] [place] MEDICAL REC #: [id number] [place] [address] ADMIT DATE: SERVICE DATE: 05/08/21 Occupational Therapy [...] follow multistep commands Percept (more content not included)...[facility]10-12-2021 Note [facility]10-11-2021 NotePhysical Therapy Inpatient Evaluation Medical Diagnosis: s/p Right AMINA performed by Dr. Storey on 05/07/21 Therapy Diagnosis: Rank Code Description 1 R26.81 Unsteadiness on feet Demographics: Age: 51Y Gender: Female Primary Language: Montenegrin Preferred Language: Montenegrin Referring Service/Team: Orthopedics Past Medical History: hyperlipidemia, [...] device, with no assistance from a helper. 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 Denies falls. Indep with ADL. Shares cooking and cleaning. Noted RLE gives out. Noted decreased endurance DRUM BARKER OPERATOR Prior Device Use: Performance GG110. Prior Device None of Above Yes Patient/Caregiver Goals: Patient's functional goals: To go home Pain: Patient currently has pain. Location: RLE Type: Acute Quality: Aching. Pain Scale: Visual Analog (VAS). Patient reports a pain level of 3 out of 10. [facility] PATIENT NAME: DEBI WEI [address] [place] MEDICAL REC #: [id number] [place] [address] ADMIT DATE: SERVICE DATE: 05/07/21 Physical Therapy Assessment Report ATTENDING PHY: Mia Storey MD Patient's acceptable level of pain 0 out of 10. Interferes with physical activity. Pain is alleviated by: Pain is exacerbated by: Movement Interventions: Repositioned patient. Home Environment: Patient lives alone, but assistance is available. Son x DIL. ZOË Queen whom is 24.7 Patient lives in a single family home. Home is single level. Patient is not required to manage stairs within the home. First floor full bathroom setup available. There are 2 steps to enter the home, with no hand railings. There is no ramp available to enter home. 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 [place] MEDICAL REC #: [id number] [place] [address] ADMIT DATE: SERVICE DATE: 05/07/21 Physical Therapy [...] on mobility benefits, educate (more content not included)...[facility] Diagnosis Right lower quadrant abdominal pain- Primary Abdominal pain, right lower quadrant [facility] Diagnosis Somnolence- Primary Other alteration of consciousness Memory change Memory loss Episodic lightheadedness Dizziness and giddiness Sweating abnormality Other specified disorder of sweat glands Abnormality of gait [facility]* Visit Details Visit Type -PT EVAL Discipline -Physical Therapy Problems Problem Description Start Date Status Goals Interve ntions Sepsis Disciplines: Skilled Services 08/29/2023 Active 1 goal linked to scheduled/document ed intervention 1 goal intervention scheduled/documente d in this visit PT Referral Disciplines: Skilled Services 08/29/2023 Active 1 goal linked to scheduled/document ed intervention 1 goal intervention scheduled/documente d in this visit Physician Specific Parameters Disciplines: Skilled Services 08/29/2023 Active 1 goal linked to scheduled/document ed intervention 1 goal intervention scheduled/documente d in this visit Risk for Falls Disciplines: Skilled Services 08/29/2023 Active 1 goal linked to scheduled/document ed intervention 1 goal intervention scheduled/documente d in this visit PT Neurologic Condition Disciplines: PT 09/01/2023 Active 1 goal linked to scheduled/document ed intervention 1 goal intervention scheduled/documente d in this visit PT Learning Assessment Disciplines: PT 09/01/2023 Active 1 goal linked to scheduled/document ed intervention 1 goal intervention scheduled/documente d in this visit Goals Goal Associated Problem Outcome Goal Met? Visit Notes Patient/caregiver will be able to identify and report symptoms of sepsis Description: Patient/caregiver will be able to identify signs/symptoms of sepsis infection and will verbalize actions to take if suspected by 10/27/23. Sepsis No Patient will be referred to additional discipline as needed PT Referral No Patient to maintain parameters within physician-specified ranges throughout certification period Physician Specific Parameters No Manage Risk for falls Description: Patient/caregiver will verbalize knowledge of individualized fall prevention strategies by 10/27/23. Risk for Falls No Manage Neurologic Condition Description: Improve patient and/or caregiver understanding of post surgical and/or non-surgical neurologic intervention management as evidenced by patient and/or caregiver able to verbalize, demonstrate, and teach back instruction, to be achieved by 09/27/23. . PT Neurologic Condition No Demonstrate understanding of education Description: Patient and/or caregiver will understand educational instruction to be achieved by 09/27/23. . PT Learning Assessment No Interventions Intervention Associated Problem/Goal Status Variance Visit Notes Risk of Sepsis Description: Patient is at risk for sepsis. Monitor closely for s/s of sepsis. Problem:Sepsis Goal:Patient/caregive r will be able to identify and report symptoms of sepsis Completed PT evaluation and treatment Description: Evaluate and treat for the assessment of functional deficits and establishment of appropriate interventions and education, including recommendations for functional mobility training, balance training for fall reduction, and strengthening. Problem:PT Referral Goal:Patient will be referred to additional discipline as needed Completed SPO2 Description: Notify Jigar Lucas MD and stop activity if pulse ox is <92% at rest. Problem:Physician Specific Parameters Goal:Patient to maintain parameters within physician-specified ranges throughout certification period Completed Instruct on individual fall risk factors and strategies to prevent falls and injuries caused by falls. Problem:Risk for Falls Goal:Manage Risk for falls Completed PT: Patient instructed on Eliminating Environmental Hazards: Keep pathways clear, Keep pets out of pathways, Remove unsafe rugs, Move furniture from pathways and Wear supportive shoes or non-skid socks Managing Impaired Functional Mobility: Use assistive device(s): front wheeled walker and single point cane Managing Pain Instruct on self-management of post surgical and/or non-surgical neurologic intervention Problem:PT Neurologic Condition Goal:Manage Neurologic Condition Completed patient instructed on instructed on when to call [email or web address]-[email or web address] (balance, eyes, face, arms, speech, time) and instructed on when to call provider. Instruct and educate on knowledge deficits Problem:PT Learning Assessment Goal:Demonstrate understanding of education Completed patient verbalize and/or demonstrate understanding of physical therapy education including neurological disease management, fall prevention strategies and home safety. Education methods include: verbal cues. Further education required to improve knowledge and compliance with fall prevention strategies, home safety, functional activity and home exercise program. documented in this encounter [facility] Plan of care note* Visit Details Visit Type -PRESS WORKER HELPER EVAL Discipline -Speech Language Pathology Problems Problem Description Start Date Status Goals Interve ntions Medication Education Disciplines: Skilled Services 08/29/2023 Active 1 goal linked to scheduled/document ed intervention 1 goal intervention scheduled/document ed in this visit Sepsis Disciplines: Skilled Services 08/29/2023 Active 1 goal linked to scheduled/document ed intervention 1 goal intervention scheduled/document ed in this visit Physician Specific Parameters Disciplines: Skilled Services 08/29/2023 Active 1 goal linked to scheduled/document ed intervention 1 goal intervention scheduled/document ed in this visit Nutrition/Hydr ation Disciplines: Skilled Services 08/29/2023 Active 1 goal linked to scheduled/document ed intervention 1 goal intervention scheduled/document ed in this visit PRESS WORKER HELPER Referral Disciplines: Skilled Services 08/29/2023 Resolved on 09/02/2023 1 goal linked to scheduled/document ed intervention 1 goal intervention scheduled/document ed in this visit PRESS WORKER HELPER Language Auditory Comprehension Disciplines: PRESS WORKER HELPER 09/02/2023 Active 1 goal linked to scheduled/document ed intervention 1 goal intervention scheduled/document ed in this visit Goals Goal Associated Problem Outcome Goal Met? Visit Notes Patient/caregiver will demonstrate ability to obtain, store, identify and administer ordered medications, keep accurate medication list in home, and adhere to medication schedule Description: Patient/caregiver will demonstrate ability to obtain, store, identify and administer ordered medications, keep accurate medication list in home, and adhere to medication schedule by 10/27/23. Medication Education No Patient/caregiver will be able to identify and report symptoms of sepsis Description: Patient/caregiver will be able to identify signs/symptoms of sepsis infection and will verbalize actions to take if suspected by 10/27/23. Sepsis No Patient to maintain parameters within physician-specified ranges throughout certification period Physician Specific Parameters No Manage Nutrition/Hydration Description: Patient/caregiver will verbalize/demonstrate knowledge of prescribed diet and/or healthy nutrition to be achieved by 09/27/23. Nutrition/Hydration No Patient will be referred to additional discipline as needed PRESS WORKER HELPER Referral Completed Yes Improve Auditory Comprehension STG Description: Patient/caregiver will improve comprehension of open ended questions and conversational tasks with minimal cues in 4/5 opportunities. To be achieved by 10/04/23. PRESS WORKER HELPER Language Auditory Comprehension No Interventions Intervention Associated Problem/Goal Status Variance Visit Notes Medication Education Description: Evaluate/instruct patient/caregiver on obtaining, storing, identifying and administering ordered medications as well as keeping accurate medication list in the home and adhereing to medication schedule Problem:Medication Education Goal:Patient/caregive r will demonstrate ability to obtain, store, identify and administer ordered medications, keep accurate medication list in home, and adhere to medication schedule Completed Patient instructed on importance of keeping accurate medication list in home, need to take up-to-date medication list to all medical provider appointments and adhering to medication schedule. Risk of Sepsis Description: Patient is at risk for sepsis. Monitor closely for s/s of sepsis. Problem:Sepsis Goal:Patient/caregive r will be able to identify and report symptoms of sepsis Completed SPO2 Description: Notify Jigar Lucas MD and stop activity if pulse ox is <92% at rest. Problem:Physician Specific Parameters Goal:Patient to maintain parameters within physician-specified ranges throughout certification period Completed Define patient s appetite/hydration status and implement strategies to improve compliance with prescribed diet and/or healthy nutrition. Problem:Nutrition/Hyd ration Goal:Manage Nutrition/Hydration Completed reinforced patient on implementing strategies to comply with healthy nutrition and adequate hydration PRESS WORKER HELPER evaluation and treatment Description: ST Referral eval and treat for Impaired cognition and memory. Problem:PRESS WORKER HELPER Referral Goal:Patient will be referred to additional discipline as needed Completed Auditory Comprehension Instruction Problem:PRESS WORKER HELPER Language Auditory Comprehension Goal:Improve Auditory Comprehension STG Completed PRESS WORKER HELPER instructed/cued patient to complete the following tasks to improve auditory comprehension and memory: Spend at least 30 minutes daily engaged in light physical exercise, cognitively stimulating activities such as: Word finds, matching games, memory games, card games, board games, coloring, color or paint by number, reading, writing, sorting coins, putting dishes away, sorting laundry, back tender (cooking, laundry, gardening--can be watering plants), balancing a checkbook, creating a shopping list, find the differences in images, mazes, reminiscing with use of music or photos, conversations about current events, phone calls, discussing a show recently watched, scheduling appointments, managing medications, organization of information in a maintenance planner or calendar, writing and mailing a letter, etc. documented in this encounter [facility] Summary Purpose Family History No Family History Records FoundNo Family History Records FoundNo Family History Records FoundNo Family History Records FoundNo Family History Records Found Advance Directives No Advanced Directives Records FoundLatest Code Status on File Code Status Date Activated Date Inactivated Comments Full Code 08/24/2023 1:40 PM 08/26/2023 6:14 PM Question Answer Comments Full Code Order Discussed With: Patient Latest Code Status on File Code Status Date Activated Date Inactivated Comments Full Code 08/29/2023 2:52 PM Code Status History Code Status Date Activated Date Inactivated Comments Full Code 08/24/2023 1:40 PM 08/26/2023 6:14 PM Question Answer Comments Full Code Order Discussed With: Patient Latest Code Status on File Code Status Date Activated Date Inactivated Comments Full Code 08/29/2023 2:52 PM Code Status History Code Status Date Activated Date Inactivated Comments Full Code 08/24/2023 1:40 PM 08/26/2023 6:14 PM Question Answer Comments Full Code Order Discussed With: Patient Reason for Referral Specialty Diagnoses / Procedures Referred By Zac franco Referred To Contact Neurology Diagnoses Somnolence Memory change Episodic lightheadedness Abnormality of gait Procedures CONSULT TO NEUROLOGY OFFICE/OUTPATIENT [facility] 60 MINUTES Gage Argueta DO [address] [place] [address] Referral ID Status Reason Start Date Expiration Date Visits Requested Visits Authorized [id number] Authorized PCP Requested Referral 08/29/2023 08/28/2024 1 1 Additional Source Comments INFORMATION SOURCE (unrecogn ized section and content) DATE CREATED AUTHOR AUTHOR'S ORGANIZ ATION 05/07/2021 Victor Manuel rodriguez DATE CREATED AUTHOR AUTHOR'S ORGANIZ ATION 07/14/2021 [facility] Janett Davis DATE CREATED AUTHOR AUTHOR'S ORGANIZ ATION 08/29/2023 [facility] DATE CREATED AUTHOR AUTHOR'S ORGANIZ ATION 09/03/2023 [facility] Source Comments (unrecognize d section and content) In the event this informatio n is protected by the Federal Confidentiality of Alcohol and Drug Abuse Patient Records regulations: The Federal rules restrict any use of the information to criminally investigate or prosecute any alcohol or drug abuse patient.[facility] the event this information is protected by the Federal Confidentiality of Alcohol and Drug Abuse Patient Records regulations: The Federal rules restrict any use of the information to criminally investigate or prosecute any alcohol or drug abuse patient.[facility] SouthIn the event this information is protected by the Federal Confidentiality of Alcohol and Drug Abuse Patient Records regulations: The Federal rules restrict any use of the information to criminally investigate or prosecute any alcohol or drug abuse patient.[facility] South[facility] the event this information is protected by the Federal Confidentiality of Alcohol and Drug Abuse Patient Records regulations: The Federal rules restrict any use of the information to criminally investigate or prosecute any alcohol or drug abuse patient.[facility] SouthIn the event this information is protected by the Federal Confidentiality of Alcohol and Drug Abuse Patient Records regulations: The Federal rules restrict any use of the information to criminally investigate or prosecute any alcohol or drug abuse patient.[facility] SouthIn the event this information is protected by the Federal Confidentiality of Alcohol and Drug Abuse Patient Records regulations: The Federal rules restrict any use of the information to criminally investigate or prosecute any alcohol or drug abuse patient.[facility] Care Teams (unrecognized sec tion and content) State Wildlife Officer Relationship Specialty Start Date End Date Jigar Lucas MD [address] [place] [address] PCP - General Internal Medicine 08/11/23 Jigar Lucas MD [address] [place] [address] Home Care Provider Internal Medicine 08/26/23 Gareth Alva MD [address] [place] [address] Referring Internal Medicine 08/26/23 Curry Gibbs, DEEPAK [address] [place], [place] [id number] Tour Sales Representative Post Acute Care 08/26/23 State Wildlife Officer Relationship Specialty Start Date End Date Jigar Lucas MD [address] [place] [address] PCP - General Internal Medicine 08/11/23 Jigar Lucas MD [address] [place] [address] Home Care Provider Internal Medicine 08/26/23 Gareth Alva MD [address] [place] [address] Referring Internal Medicine 08/26/23 Curry Gibbs RN [address] [place] [address] Tour Sales Representative Post Acute Care 08/26/23 State Wildlife Officer Relationship Specialty Start Date End Date Jigar Lucas MD [address] [place] [address] PCP - General Internal Medicine 08/11/23 Jigar Lucas MD [address] [place] [address] Home Care Provider Internal Medicine 08/26/23 Gareth Alva MD [address] [place] [address] Referring Internal Medicine 08/26/23 Curry Gibbs RN [address] [place] [address] Tour Sales Representative Post Acute Care 08/26/23 State Wildlife Officer Relationship Specialty Start Date End Date Jigar Lucas MD [address] [place] [address] PCP - General Internal Medicine 08/11/23 Jigar Lucas MD [address] [place] [address] Home Care Provider Internal Medicine 08/26/23 Gareth Alva MD [address] [place], [place] [id number] Referring Internal Medicine 08/26/23 Curry Gibbs RN [address] [place], [place] [id number] Tour Sales Representative Post Acute Care 08/26/23 State Wildlife Officer Relationship Specialty Start Date End Date Jigar Lucas MD [address] [place] [address] PCP - General Internal Medicine 08/11/23 Jigar Lucas MD [address] [facility] [place] [address] Home Care Provider Internal Medicine 08/26/23 Gareth Alva MD [address] [place] [address] Referring Internal Medicine 08/26/23 Curry Gibbs RN [address] [place] [address] Tour Sales Representative Post Acute Care 08/26/23 Reason for Visit (unrecogniz ed section and content) Reason Comments Home Care Reason Comments New Patient FOR RECORDS PERTAINING TO PATIENTS WHO ARE [...] BE BASED ON THE PRIMARY CLINICAL RECORDS. [facility] [employer] [facility]. provides no warranty or guarantee of the accuracy or completeness of information in this document.
[2023-09-05 12:09] LABS: Anti-Centromere B Ab <0.2 AI (0.0-0.9); Anti-Chromatin <0.2 AI (0.0-0.9); Anti-Jo <0.2 AI (0.0-0.9); Anti-Scleroderma-70 AB <0.2 AI (0.0-0.9); Anti-dsDNA Ab 2 IU/mL (0-9); CCP IgG Antibodies 5 units (0-19); RNP Ab <0.2 AI (0.0-0.9); SJOGREN'S Anti-SS-A test < 0.2 AI (0.0-0.9); SJOGREN'S Anti-SS-B test < 0.2 AI (0.0-0.9); Smith Ab <0.2 AI (0.0-0.9)
== END | disposition home or self-care (01) ==
LOC: BIMLAB 15:19
PROVIDERS: PCP Internal Medicine; Referring Provider Internal Medicine; Visit Provider Internal Medicine
DX: G89.29 Other chronic pain (principal)
CPT/HCPCS: 36415; 86200; 86225; 86235; 86431

== ENCOUNTER 2024-01-06 11:34 | Day surgery (SDC) | payer MEDICAID, SELFPAY ==
[2024-01-06 12:06] VITALS: BP 151/93; PULSE 68; RESP 16; TEMP 36.6; O2SAT 99; BMI 36.0
[2024-01-06] MEDS: Lactated Ringers 1,000 ML 15 ML IV (12:16)
--- NOTE | 2024-01-06 12:48 | HP.PCM_ITS ---
[facility] - General General Date of Admission: 01/06/24 Date of Service: 01/06/24 Chief Complaint: Screening colonoscopy HPI Narrative BARBARA WEI, is a 53 F who presents today for screening colonoscopy. She has not had a colonoscopy in the past. She does have past medical history of gastroesophageal reflux disease and migraines. She also has a past medical history of mild hypercholesterolemia. All of which are controlled with medical therapy. She is not have any abdominal pain. Denies any cramping. She denied any chest pain or shortness of breath. Overall she is in very good health. [facility] Medical History (Updated 01/01/24 @ 09:51 by Ingrid Jacobs) Wears hearing aid Wears glasses Depression Anxiety Bladder disease Anemia Restless legs Injury of head and neck Migraine headache Back pain TIA (transient ischemic attack) Dietary restriction Gastric reflux Non-smoker Shortness of breath on exertion Leg cramps History of pain when walking History of edema History of echocardiogram History of stress test Cardiology follow-up encounter POTS (postural orthostatic tachycardia syndrome) Hyperlipemia Osteoarthritis Home Medications ?Medication ?Instructions ?Recorded ?Last Taken ?Type multivitamin with iron 1 tab PO DAILY 08/18/23 Unknown History pantoprazole 40 mg tablet,delayed 40 mg PO DAILY 30 days #30 tabs 11/18/23 01/06/24 Rx release rimegepant 75 mg disintegrating 75 mg PO DAILY PRN PRN migraine 11/18/23 Unknown History tablet (Nurtec ODT) headache topiramate 25 mg tablet 25 mg PO BID 11/18/23 01/06/24 History venlafaxine 37.5 mg 37.5 mg PO BID 11/18/23 01/06/24 History capsule,extended release 24 hr bisacodyl 5 mg tablet,delayed 5 mg PO DAILY PRN PRN constipation 12/29/23 Unkn own History release (Dulcolax (bisacodyl)) hydroxyzine HCl 25 mg tablet 25 mg PO BID PRN PRN anxiety 12/29/23 Unknown History magnesium oxide 500 mg capsule 500 mg PO QWEEK 12/29/23 Unknown History midodrine 2.5 mg tablet 2.5 mg PO BID 12/29/23 01/06/24 History atorvastatin 10 mg tablet 10 mg PO QHS 01/01/24 Unknown History melatonin 10 mg capsule 10 mg PO QHS PRN PRN sleep 01/01/24 Unknown History Allergy/AdvReac Type Severity Reaction Status Date / Time oak Allergy Severe Anaphylaxis Verified 01/06/24 12:04 lactose Allergy Mild Diarrhea Verified 01/06/24 12:04 Environmental Allergies: Allergy Triggers Verified 01/06/24 12:04 Uncoded (hay) Asthma Family History Mother Anxiety Arthritis spinal stenosis Father Diabetes COPD (chronic obstructive pulmonary disease) Grandmother Blood clot in vein CVA (cerebral vascular accident) Surgical History (Updated 01/01/24 @ 09:51 by Ingrid Jacobs) Hx of appendectomy H/O cystoscopy History of salpingectomy History of hysterectomy Hx of tonsillectomy S/P laparoscopic appendectomy S/P abdominoplasty History of back surgery Hx of bilateral hip replacements Hx of gastric bypass Hx of cholecystectomy Social History (Updated 12/29/23 @ 09:14 by Lisa Salmon) household members: children current occupational status: unemployed 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 Smoking Status: Never smoker Electronic Cigarette Use: not used alcohol intake: never substance use type: does not use what type of physical activity do you participate in: none do you feel safe at home: Yes ROS Review of Systems ROS Unobtainable: other Constitutional Constitutional: Denies fatigue, fever(s), poor appetite, weight gain or weight loss ENT HEENT: Denies mouth lesions Cardiovascular Cardiovascular: Denies abdominal bloating, abdominal edema or abdominal pain Respiratory/Chest Respiratory/Chest: Denies change in mental status, change in phlegm color, chest congestion or chest tightness Gastrointestinal Gastrointestinal: Denies belching, bloating, change in bowel habits, change in stool character, chewing difficulty, coffee ground emesis, constipation, cramping, diarrhea, dyspepsia, dysphagia, early satiety, excessive flatus, fecal incontinence, heartburn, hematemesis, hematochezia, hemorrhoids, loose stools, melena, nausea, odynophagia, rectal bleeding, tenesmus, vomiting or weight changes Genitourinary Genitourinary: Denies abdominal discomfort, burning urination or itching Musculoskeletal Musculoskeletal: Reports as per HPI; Denies muscle weakness or myalgias Integumentary Integumentary: Denies jaundice Neurologic Neurologic: Denies lack of coordination or weakness Psychiatric Psychiatric: Denies confusion, depression, memory loss, mood swings, paranoia or suicidal ideation Endocrine Endocrinology: Denies systems reviewed and no addt'l complaints, except as documented Hematologic/Lymphatic Hematologic/Lymphatic: Denies anemia, easy bleeding, easy bruising or lymphadenopathy Allergic/Immunologic Allergic/Immunologic: Denies systems reviewed and no addt'l complaints, except as documented Vital Signs Vital Signs Vital Signs: 01/06/24 12:06 01/06/24 12:06 Temperature 98 F Temperature Source Temporal Pulse Rate 68 Respiratory Rate 16 Respiratory Pattern Normal Blood Pressure 151/93 H Blood Pressure Mean 112 Blood Pressure Source Monitor Blood Pressure Position Semi-Fowlers Blood Pressure Location Right Arm Pulse Ox 99 Oxygen Delivery Method Room Air Weight Weight: 236 lb 15.951 oz Body Mass Index (BMI) 36.0 Physical Exam Const alert, oriented x3, no apparent distress, healthy appearing and well nourished General Appearance: cooperative, comfortable, well kempt and well developed Orientation / Consciousness: awake and oriented to person HEENT Head and Scalp: normocephalic and atraumatic Face and Sinus: normal facial exam Mouth: oral and palatal mucosa normal Eyes General Eye: normal appearance of both eyes Neck full ROM Lymph Lymphatic: no lymphadenopathy noted Chest inspection of chest normal Resp normal respiratory effort and no use of accessory muscles Cardio regular rate and regular rhythm GI normal to inspection, nondistended, normoactive bowel sounds, soft to palpation, non-tender, non-distended and no masses Auscultation: normoactive bowel sounds Palpation: soft Percussion: normal to percussion Rectal Exam: visual inspection normal and normal sphincter tone no CVA tenderness Back/Spine no CVA tenderness and normal ROM Extremity normal to inspection Peripheral Pulses: Yes pulses 2+ throughout Skin no rashes or lesions noted General Skin Exam: no breakdown, elasticity normal and turgor normal Neuro oriented x3 Motor Exam: strength 5/5 throughout Psych mental status grossly normal Appearance: grossly normal Attitude: calm Activity / Motor Behavior: appropriate eye contact Speech: normal speech Thought Process: normal thought process Thought Content: normal thought content Attention / Concentration: attention grossly intact Memory / Cognition: memory grossly intact Insight: insight good Judgement: judgement good Assessment & Plan Assessment/Plan (1) Encounter for screening for malignant neoplasm of colon: PLAN: She was explained alternatives, risk, benefits include not withstanding bleeding, infection, sepsis, perforation, need for emergent urgent . She will have an ASA of 3.
--- NOTE | 2024-01-06 13:29 | OP.COLON_ITS ---
Patient Name: Debi Ace Procedure Date: 01/06/2024 12:49 PM Date of : 1970 Age: 53 Procedure: Colonoscopy Indications: Screening for colorectal malignant neoplasm Providers: Rickie Flores DO Referring MD: Kristin Lucas Md Medicines: Monitored Anesthesia Care Patient Profile: This is a 53 year old female. Refer to note in patient chart for documentation of history and physical. Last Colonoscopy: none. The patient's first colonoscopy is today. Complications: No immediate complications. Procedure: Pre-Anesthesia Assessment: - Prior to the procedure, a History and Physical was performed, and patient medications and allergies were reviewed. The patient is competent. The risks and benefits of the procedure and the sedation options and risks were discussed with the patient. All questions were answered and informed consent was obtained. Patient identification and proposed procedure were verified by the physician in the pre-procedure area. Mental Status Examination: alert and oriented. Airway Examination: normal oropharyngeal airway and neck mobility. Respiratory Examination: clear to auscultation. CV Examination: normal. Prophylactic Antibiotics: The patient does not require prophylactic antibiotics. Prior Anticoagulants: The patient has taken no anticoagulant or antiplatelet agents. ASA Grade Assessment: II - A patient with mild systemic disease. After reviewing the risks and benefits, the patient was deemed in satisfactory condition to undergo the procedure. The anesthesia plan was to use monitored anesthesia care (MAC). Immediately prior to administration of medications, the patient was re-assessed for adequacy to receive sedatives. The heart rate, respiratory rate, oxygen saturations, blood pressure, adequacy of pulmonary ventilation, and response to care were monitored throughout the procedure. The physical status of the patient was re-assessed after the procedure. After I obtained informed consent, the scope was passed under direct vision. Throughout the procedure, the patient's blood pressure, pulse, and oxygen saturations were monitored continuously. The colonoscope was introduced through the anus and advanced to the cecum, identified by the appendiceal orifice, IC valve and transillumination. The colonoscopy was performed without difficulty. The patient tolerated the procedure well. The quality of the bowel preparation was adequate. The ileocecal valve, appendiceal orifice, and rectum were photographed. Scope In: 12:56:46 PM Scope Withdrawal Time 0 hours 17 minutes 18 seconds Scope Out: 1:22:39 PM Total Procedure Duration Time 0 hours 25 minutes 53 seconds Findings: The perianal and digital rectal examinations were normal. Multiple small and large-mouthed diverticula were found in the recto-sigmoid colon, sigmoid colon, descending colon and splenic flexure. There was no evidence of diverticular bleeding. The exam was otherwise without abnormality on direct and retroflexion views. Impression: - Moderate diverticulosis in the recto-sigmoid colon, in the sigmoid colon, in the descending colon and at the splenic flexure. There was no evidence of diverticular bleeding. - The examination was otherwise normal on direct and retroflexion views. - No specimens collected. Recommendation: - Discharge patient to home. - Resume previous diet. - Continue present medications. - Repeat colonoscopy in 10 years for screening purposes. Procedure Code(s): --- Professional --- G0121, Colorectal cancer screening; colonoscopy on individual not meeting criteria for high risk CPT copyright 2021 [employer]. All rights reserved. The codes documented in this report are preliminary and upon tailings dam pumper review may be revised to meet current compliance requirements. Rickie Flores DO 01/06/2024 1:28:58 PM This report has been signed electronically. Number of Addenda: 0 Note Initiated On: 01/06/2024 12:49 PM
--- NOTE | 2024-01-06 13:29 | OP.CCLET_ITS ---
01/06/2024 Kristin Lucas Md Re : Colonoscopy procedure for Debi Ace Dear Lance This procedure was performed on Saturday, January 06, 2024. My impressions and recommendations are as follows: Impressions : - Moderate diverticulosis in the recto-sigmoid colon, in the sigmoid colon, in the descending colon and at the splenic flexure. There was no evidence of diverticular bleeding. - The examination was otherwise normal on direct and retroflexion views. - No specimens collected. Recommendations : - Discharge patient to home. - Resume previous diet. - Continue present medications. - Repeat colonoscopy in 10 years for screening purposes. My findings are described in the full procedure note, which is enclosed. If I can be of further assistance, please feel free to contact me at . Sincerely, Rickie Flores, 01/06/2024 1:28:58 PM This report has been signed electronically.
[2024-01-06 13:30] VITALS: BP 121/53; BP 151/93; PULSE 60; RESP 16; TEMP 36.1; O2SAT 99
[2024-01-06 13:35] VITALS: BP 135/96; BP 151/93; PULSE 71; RESP 16; O2SAT 99
[2024-01-06 13:40] VITALS: BP 114/92; BP 151/93; PULSE 63; RESP 16; TEMP 36.2; O2SAT 100
[2024-01-06 13:57] VITALS: BP 151/93
== END 2024-01-06 14:27 | disposition home or self-care (01) ==
LOC: SDC 11:35 → AC 11:37
PROVIDERS: PCP Internal Medicine; Referring Provider Internal Medicine; Visit Provider Internal Medicine Gastroenterology
PROC: 0DJD8ZZ Inspection of Lower Intestinal Tract, Via Natural or Artificial Opening Endoscopic (ICD-10-PCS; CPT 45378; principal; 2024-01-06 12:25)
DX: Z12.11 Encounter for screening for malignant neoplasm of colon (principal); K57.30 Diverticulosis of large intestine without perforation or abscess without bleeding; K21.9 Gastro-esophageal reflux disease without esophagitis; E78.00 Pure hypercholesterolemia, unspecified; Z79.899 Other long term (current) drug therapy
CPT/HCPCS: 45378; J7120; J2405

== ENCOUNTER → 2024-01-13 | Outpatient (CLI) | payer MEDICAID, SELFPAY ==
[2024-01-16 03:07] LABS: Chlamydia By Nucleic Acid AMP Negative (Negative); Gonococcus By Nucleic Acid AMP Negative (Negative)
[2024-01-17 12:08] LABS: HPV APTIMA, High Risk Negative (Negative)
== END | disposition home or self-care (01) ==
LOC: LABSPEC 12:14
PROVIDERS: PCP Internal Medicine; Referring Provider Nurse Practitioner Women's Health; Visit Provider Nurse Practitioner Women's Health
DX: Z11.3 Encounter for screening for infections with a predominantly sexual mode of transmission (principal); Z12.4 Encounter for screening for malignant neoplasm of cervix
CPT/HCPCS: 87491; 87591; 87624; 88175; G0145

== ENCOUNTER 2024-05-10 10:00 | Outpatient (RCR) | payer MEDICAID, SELFPAY ==
--- NOTE | 2024-03-31 15:01 | HP.PTEVAL_ITS ---
Patient's Visit Information Visit Information Visit Information: BARBARA WEI is a 54 year old F referred to Physical Therapy by Delmy Galloway PA-C with a diagnosis of S/P LUMBAR SPINAL FUSION. Date of Evaluation: 03/31/24 Physical Therapist: Cholo Reardon, PT, Cert MDT, OCS Visit Plan Frequency: 2x /Week Duration: 6 Weeks Plan: S/P LUMBAR FUSION 02/23 NO BLT BRACE ON ALL TIME UNTIL 04/09 WEAN SAVITA PT INTERVENTIONS DLS ,POSTURAL, LE FLEXABILITY , LE STRENGTHENING AND GRADED LUMBAR ROM Subjective Subjective: This 54 y/o female presents [facility] physical therapy with lumbar fusion L1 -S1 instrumentation ,allograft bone and L2-L3,L4-L5 laminectomy done by DR Lemus at [facility] on 02/24/24. Patient developed ileus had to stay 7 days d/c Mar 02 with fww and lumbar brace. No BLT and restriction 4 #. Patient seen PA on Mar 12. Patient has HOME PT for 2 weeks. Patient has bone stimulator 2 hrs daily. Pain medication hydrocodone. Patient has pain right leg but improving but in right glut and back . Patient has pin/needles right leg and mild pain lumbar. Patient to have lumbar brace Apr 09 wean as savita.Patient able to be self efficient.. Prior back many years and had 1st surgery 2006 lumbar fusion. Patient had pain management. Patient is to have brace on all time . Patient has lumbar surgery affects QOL and function. Patient goals to return to prior level with no pain. Patient PMH gastric by pass ,appy ,bilateral THR,POTS SOCIAL: lives with son VOCATION: Disability Pain Bilateral Back: Pain Intensity (Out of 10): 6 Pain Intensity Range: 10 Right Lower Extremity: Pain Intensity (Out of 10): 7 Pain Intensity Range: 10 Objective Objective: POSTURE : mild forward posture INCISION:well approximate mild dryness NEURO: pins/needles right leg ,reflexes L3-4,L4-5,L5-S1 1/3 PALAPTION: tender paraspinals LUMBAR ROM: flexion mod loss,extension mod/severe ,side glides mod loss FLEXABILITY: hamstrings min tight MMT: quads/hams 4/5 ,( PEAK FORCE ) right hip flexion 12.8 ,left 18.5 ,ankle 4/5 GAIT: reciprocal pattern Special Tests L/S Slump test left side: Negative L/S Slump test right side: Negative L/S Left Straight Leg Raise: Negative L/S Right Straight Leg Raise: Negative Balance/Special Test Scores Oswestry Low Back Score: 30 Goals Goal 1:: Patient to be I with HEP for back Goal Time Frame: 4-6 Weeks Goal 2:: Patient to improve lumbar ROM for function of recovery to put on shoes Goal Time Frame: 4-6 Weeks Goal 3:: Patient to improve back oswestry score by 5 points to improve QOL and function Goal Time Frame: 4-6 Weeks Goal 4:: Patient to demonstrate 50% improvement with function and ADL Goal Time Frame: 4-6 Weeks Goal 5:: Patient to improve hip strength by 5-10# to improve function and ADL Goal Time Frame: 4-6 Weeks Rehabilitation Potential Physical Therapy Diagnosis: This patient underwent s/p lumbar fusion L1 -S1 instrumentation ,allograft bone and L2-L3,L4-L5 laminectomy 02/23 with pain ,weakness hips ,decrease lumbar ROM ,impairs gait and function thus benefit from skilled PT Rehabilitation Potential: Good Anticipated Interventions Patient/Client Instruction: Educate patient on: Condition and Plan of Care For the Purpose of:: To decrease pain, To increase ROM, To improve muscle performance and motor function, To improve ability to perform ADL's, To improve ability of physical actions for home/community/work/leisure, To improve gait and locomotor functions, To improve health of tissue, To decrease soft tissue restriction, To increase flexibility/ROM, To improve endurance, To assume or resume ADL's and To improve tolerance to ADL's Therapeutic Exercise to Include: Strength training, Body mechanics, Postural training, Flexibilty training and Dynamic Lumbar Stabilization Comment: BLE For the Purpose of:: To decrease pain, To increase ROM, To improve muscle performance and motor function, To improve ability to perform ADL's, To increase tolerance to activity/condition/position, To improve ability of physical actions for home/community/work/leisure, To improve health of tissue, To decrease soft tissue restriction, To increase flexibility/ROM and To improve endurance Text: Thank you for the opportunity to evaluate your patient. For Medicare and Medicare HMO plans, please review the plan of care and approve it. It will need to be FAXED BACK to us at [phone] for Medicare purposes. For Medicare only, by signing this I certify the plan of care. Please let me know if there are questions or concerns regarding this plan of care. Physician Signature: Date:
--- NOTE | 2024-05-10 10:42 | HP.PTDCSUM ---
Discharge Summary D/C summary: It has been my pleasure to treat BARBARA WEI referred by Delmy Galloway PA-C, with the diagnosis of S/P LUMBAR SPINAL FUSION for a total of 12 visit(s). Discharge Date: 05/10/24 Please see the following information for a summary of their discharge status. Subjective Subjective: Doing better overall Patient able to put on shoes and walking , sitting worse Pain Bilateral Back: Pain Intensity (Out of 10): 6 Right Lower Extremity: Pain Intensity (Out of 10): 0 Overall Improvement % Improvement: 75 Objective Objective/Function: POSTURE : mild forward posture INCISION:well approximate mild dryness NEURO: denies parastehsia/tingling,reflexes L3-4,L4-5,L5-S1 1/3 PALAPTION: tender paraspinals LUMBAR ROM: flexion min loss,extension mod/severe ,side glides min loss FLEXABILITY: hamstrings min tight MMT: quads/hams 4/5 ,( PEAK FORCE ) right hip flexion 12.8 ,left 18.5 ,ankle 4/5 GAIT: reciprocal pattern Goals Goal 1:: Patient to be I with HEP for back Goal Progress: Goal Met Goal 2:: Patient to improve lumbar ROM for function of recovery to put on shoes Goal Progress: Goal Met Goal 3:: Patient to improve back oswestry score by 5 points to improve QOL and function Goal Progress: Goal Met Goal 4:: Patient to demonstrate 50% improvement with function and ADL Goal Progress: Goal Met Goal 5:: Patient to improve hip strength by 5-10# to improve function and ADL Goal Progress: Goal Met Plan Plan: D/UX RESEARCHER HEP D/C Information Discharge Comments: hep d/c sentence: If there are questions or concerns regarding this patient's physical therapy, please feel free to call me at [phone]. Thank you for the referral of this patient. Sincerely, Cholo Reardon, PT, Cert MDT, OCS Balance/Gait/Functional tests Balance/Special Test Scores Oswestry Low Back Score: 30 Improvement % Improvement: 75
== END 2024-05-10 19:00 | disposition home or self-care (01) ==
LOC: PT 10:00
PROVIDERS: PCP Internal Medicine; Referring Provider Physician Assistant; Visit Provider Physician Assistant
DX: Z98.1 Arthrodesis status (principal)
CPT/HCPCS: 97110; 97162; 97530

== ENCOUNTER → 2024-10-11 | Outpatient (CLI) | payer OTHER, SELFPAY ==
[2024-10-11 12:51] LABS: Absolute Lymphocyte Count 1.27 X10^3/uL (0.83-4.51); Absolute Neutrophil Count 2.3 X10^3/uL (2.0-7.7); Basophil# 0.04 X10^3/uL; Eosinophil# 0.21 X10^3/uL; Hematocrit 39.9 % (37-47); Hemoglobin 12.7 g/dL (12.0-15.0); Lymphocyte # 1.27 X10^3/ul (0.83-4.51); Lymphocyte % 30.2 % (19-41); Mean Corp Hgb Conc 31.8 g/dL (32-36); Mean Corpuscular Hgb 29.7 pg (27.0-32.0); Mean Corpuscular Volume 93.4 fL (81-99); Mean Platelet Vol. 10.5 fl (6.2-12.0); Monocyte# 0.37 X10^3/uL; Monocyte% 8.8 % (0-10); NRBC Flagged by Analyzer 0 % (0-5); Neutrophil # 2.31 X10^3/uL (2.7-7.7); Neutrophil % 54.8 % (47-70); Platelet Count 293 K/mm3 (150-450); Red Blood Count 4.27 M/mm3 (4.2-5.4); White Blood Count 4.2 K/mm3 (4.4-11.0)
[2024-10-11 13:34] LABS: Erythrocyte Sedimentation Rate 19 mm/hr (0-30)
[2024-10-11 13:43] LABS: ALB/GLOB Ratio 1.3 RATIO (0.9-2.4); AST(SGOT) 29 U/L (<=31); Alanine Aminotransfer ALT/SGPT 22 U/L (<=34); Alkaline Phosphatase 79 U/L (35-104); Anion Gap 10 (5-15); BUN 13 mg/dL (4-19); BUN/Creat Ratio 18.2 RATIO (10-20); Calcium,Total 9.5 mg/dL (7.6-11.0); Carbon Dioxide 24.7 mmol/L (21.0-32.0); Chloride 106 mmol/L (98-108); Creatinine, Serum 0.72 mg/dL (0.70-1.20); EST Glomerular Filtration Rate 99 (>60); Ferritin 17 ng/mL (22-378); Globulin 3.1 g/dL (2.2-4.2); Glucose 82 mg/dL (70-99); Iron 80 ug/dL (50-170); Iron Binding Capacity,Total 369 ug/dL (250-450); Iron Binding Capacity,Unsat 289 ug/dL (228-428); Potassium 3.9 mmol/L (3.3-5.1); Protein, Total 7.1 g/dL (5.9-8.4); Sodium Level 141 mmol/L (133-145); Total Bilirubin 0.42 mg/dL (0.00-1.30)
[2024-10-11 14:29] LABS: Vitamin B12 520 pg/mL (180-914); Vitamin D,25 Hydroxy 66.7 ng/mL (30-100)
[2024-10-11 14:29] LABS: Cholesterol 159 mg/dL (<=200); High Density Lipoprotein 68 mg/dL; Low Density Lipoprotein Calc. 80 mg/dL; Triglycerides 59 mg/dL; Very Low Density Lipoprotein 12 mg/dL (5-40); cholesterol:hdl ratio screen 2.36
[2024-10-11 14:43] LABS: CRP < 3.00 mg/L (0.0-3.0)
[2024-10-11 19:27] LABS: FOLATES,SERUM (FOLIC ACID) 6.65 ng/mL (4.60-34.80)
[2024-10-12 09:08] LABS: Anti-Centromere B Ab <0.2 AI (0.0-0.9); Anti-Chromatin <0.2 AI (0.0-0.9); Anti-Jo <0.2 AI (0.0-0.9); Anti-Scleroderma-70 AB <0.2 AI (0.0-0.9); Anti-dsDNA Ab 2 IU/mL (0-9); RNP Ab <0.2 AI (0.0-0.9); SJOGREN'S Anti-SS-A test < 0.2 AI (0.0-0.9); SJOGREN'S Anti-SS-B test < 0.2 AI (0.0-0.9); Smith Ab <0.2 AI (0.0-0.9)
[2024-10-13 16:09] LABS: Albumin 3.6 g/dL (2.9-4.4); Alpha-1-Globulins 0.2 g/dL (0.0-0.4); Alpha-2-Globulins 0.8 g/dL (0.4-1.0); Cytoplasmic Ab (C-ANCA) <1:20 titer (Neg:<1:20); Deamidated Gliadin IgA 5 units (0-19); Deamidated Gliadin IgG 2 units (0-19); Endomysial Antibody IgA Negative (Negative); Immunoglobulin A 289 mg/dL (87-352); Immunoglobulin G 1072 mg/dL (586-1602); Immunoglobulin M 89 mg/dL (26-217); PROEL- TOTAL PROTEIN 6.8 g/dL (6.0-8.5); Perinuclear Ab (P-ANCA) <1:20 titer (Neg:<1:20); t-Transglutaminase IgA <2 U/mL (0-3)
== END | disposition home or self-care (01) ==
LOC: BIMLAB 08:14
PROVIDERS: Internal Medicine Gastroenterology; PCP Internal Medicine; Referring Provider Internal Medicine; Visit Provider Internal Medicine
DX: F41.9 Anxiety disorder, unspecified (principal); I63.9 Cerebral infarction, unspecified; F32.A Depression, unspecified; E78.2 Mixed hyperlipidemia; Z98.84 Bariatric surgery status; K59.00 Constipation, unspecified
CPT/HCPCS: 80053; 80061; 82306; 82607; 82728; 82746; 82784; 83516; 83540; 83550; 84165; 85025; 85652; 86037; 86140; 86225; 86235; 86255; 86334